=== PATIENT | male | born 1950 | race Caucasian/White ===

== ENCOUNTER 2016-12-12 18:49 | Inpatient (IN) | payer OTHER ==
--- NOTE | 2016-12-12 18:54 | EDPHY ---
H & P Stated Complaint: cp at 5 pm HPI/ROS: CHIEF COMPLAINT: Chest pain. HISTORY OF PRESENT ILLNESS: The patient is a 66-year-old male with a history of hypertension who presents with left-sided chest pain that began 2 hours ago while at [employer], pushing shopping cart. He has associated left arm numbness. He denies shortness of breath, nausea, recent fever or cough, leg swelling/calf pain. His pain is somewhat worse with deep breathing. He was seen in the ED for chest pain in September 2014 and was admitted at that time for evaluation of possible ACS but was found to have pneumonia and sepsis. He had a negative stress test in 2014. He reports that his symptoms today are similar. He took four 324mg Aspirin prior to arrival. He did not have any Viagra or Cialis today. Father with heart disease, diagnosed in his 70s. REVIEW OF SYSTEMS: A ten point review of systems was performed and is negative with the exception of the items mentioned in the HPI. Also, he had an episode of right foot cramping while at [employer], resolved spontaneously. Source: Patient Exam Limitations: No limitations - Personal History Current Tetanus/Diphtheria Vaccine: Yes - Medical/Surgical History Hx Asthma: No Hx Chronic Respiratory Disease: No Hx Diabetes: No Hx Cardiac Disease: No Hx Renal Disease: No Hx Cirrhosis: No Hx Alcoholism: No Hx HIV/AIDS: No Hx Splenectomy or Spleen Trauma: No Other PMH: Mononucleosis, HTN, pneumonia admission 2013. 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 Social alcohol. - Physical Exam Exam: General Appearance: Alert. Vital signs reviewed. Blood pressure 140/101. Eyes: Pupils equal and round, no conjunctival injection, no discharge. Anicteric. ENT, Mouth: Mucous membranes are moist, no oropharyngeal erythema or edema. Neck: No lymphadenopathy, supple. No carotid bruit. No JVD. Respiratory: Lungs are clear to auscultation; no wheezes, rales, or rhonchi. Cardiovascular: Regular rate and rhythm; no murmur, rub, or gallop. Gastrointestinal: Abdomen is soft and nontender, no masses or organomegaly, bowel sounds normal. Skin: Warm and dry, no rashes on exposed skin, normal color. Back: Nontender to palpation over the thoracolumbar spine. No CVAT. Extremities: No lower extremity edema, no calf tenderness or swelling. Neurological: Alert and oriented. Moving all four extremities easily and equally. Psychiatric: Normal affect. Constitutional: Initial Vital Signs Temperature (C) 36.4 C 12/12/16 18:50 Heart Rate 95 12/12/16 18:50 Respiratory Rate 18 12/12/16 18:50 Blood Pressure 140/101 H 12/12/16 18:50 O2 Sat (%) 96 12/12/16 18:50 O2 Delivery Mode Nasal Cannula O2 (L/minute) 2 Allergies/Adverse Reactions: No Known Allergies Allergy (Verified 12/12/16 18:50) Home Medications: Medication Instructions Recorded Herbals/Supplements -Info Only 1 ea PO DAILY 09/07/14 Losartan Potassium [Cozaar 50 mg 50 mg PO DAILY 09/07/14 (*)] Sildenafil Citrate [Viagra 50 MG 50 mg PO DAILY PRN 09/07/14 (*)] amLODIPine BESYLATE [Norvasc 5 mg 5 mg PO DAILY #30 tab 09/09/14 (*)] Medical Decision Making - Diagnostics EKG Interpretation: The 12 lead EKG was interpreted by myself. See hard copy and/or "tracemaster" electronic copy for interpretation. Sinus rhythm, left anterior fascicular block. Compared to EKG from September. The repeat 12 lead EKG was interpreted by myself. See hard copy and/or "tracemaster" electronic copy for interpretation. Sinus rhythm, rate 93. Left anterior fascicular block. No acute changes. Imaging: Study: PA and Lateral Chest X-ray Indication: Chest pain Results: I viewed the images myself on the PACS system. The radiologist interpretation is: No acute abnormality, or substantial change from 09/16/2016. ED Course/Re-evaluation: I reviewed the patient's past medical notes. He was last seen here in 09/2016 for hypertension. He was also seen in the hospital in 09/2014 for what was initially chest pain, but was determined to be pneumonia with sepsis. He had a negative stress test at that time. An IV was established and labs ordered. Chest x-ray and EKG obtained. .4mg SL Nitroglycerin ordered times three doses. WBC elevated at 11.07. No fever or other signs/sx of infection. CXR does not show infiltrate or evidence of pneumonia. 7:30 p.m.. Patient re-evaluated. He has received 2 sublingual nitroglycerin. His chest pain is still located substernally and is rated as a 2-3. He is not having left arm symptoms. Blood pressure is now 110/77. 7:56 p.m.. Reassessed patient. Discussed workup with him. His pain is better but not completely gone. It is slightly worse with deep breath, but this seems to be inconsistent. I doubt pulmonary embolus. I discussed admission with him. He is comfortable with the plan. His HEART score is +2 (suspicious history), +2 (age 66) +2 (HTN and FH) = 6. This score warrants admission and serial enzymes. 8:08: p.m.. Consulted with Dr. Yung, hospitalist. He accepts admission to [facility]. Repeat EKG has been ordered. Differential Diagnosis: Chest pain including but not limited to myocardial ischemia, pulmonary embolus, chest wall pain, pleural inflammation and pulmonary infectious causes. - Data Points Laboratory Results: Laboratory Results 12/12/16 19:09 12/12/16 19:09 Medications Given: Discontinued Medications Nitroglycerin (Nitrostat) 0.4 mg SL Q5M PRN PRN Reason: Chest Pain Stop: 12/12/16 19:18 Last Admin: 12/12/16 19:28 Dose: 0.4 mg Departure - Departure Disposition: [facility] Inpatient Acute Clinical Impression: Chest pain Qualifiers: Chest pain type: unspecified Qualified Code(s): R07.9 - Chest pain, unspecified Condition: Fair Report Scribed for: Apple Gurrola Report Scribed by: Julien Sellers Date of Report: 12/12/16 Time of Report: 18:59 Physician Review and Approval Statement: 12/12/16 18:54 Portions of this note were transcribed by the medical office worker. I, Dr. Apple Gurrola, personally performed the history, physical exam, and medical decision- making; and confirmed the accuracy of the information in the transcribed note.
--- NOTE | 2016-12-12 19:02 | CPEKG ---
Heart Rate: 94 RR Interval: 638 P-R Interval: 188 QRSD Interval: 92 QT Interval: 348 QTC Interval: 436 P [place]ays[place]: 50 QRS [place]ays[place]: -53 T Wave [place]: 43 EKG Severity - ABNORMAL ECG - EKG Impression: SINUS RHYTHM EKG Impression: LEFT ANTERIOR FASCICULAR BLOCK Electronically Signed By: Manoj Harper 18-Dec-2016 16:34:58
[2016-12-12] MEDS: NITROGLYCERIN 0.4 MG BTL SL PRN ×2 (19:10→19:28)
[2016-12-12 19:18] LABS: % IMMATURE GRANULYOCYTES 0.4 % (0.0-1.1); ABSOLUTE IMMATURE GRANULOCYTES 0.04 10^3/uL (0.00-0.10); ADD DIFF? NO; ADD MORPH? NO; ADD SCAN? NO; ATYPICAL LYMPHOCYTE FLAG 0 (0-99); FRAGMENT RBC FLAG 0 (0-99); HEMATOCRIT 49.9 % (40.0-51.0); HEMOGLOBIN 17.9 g/dL (13.7-17.5); LEFT SHIFT FLG 0 (0-99); LIPEMIA HEMOLYSIS FLAG 90 (0-99); MEAN CELL HEMOGLOBIN 31.6 pg (27.9-34.1); MEAN CELL HEMOGLOBIN CONCENTR. 35.9 g/dL (32.4-36.7); MEAN PLATELET VOLUME 9.2 fL (8.7-11.7); PLATELET CLUMPS FLAG 0 (0-99); PLATELET COUNT 183 10^3/uL (150-400); RED BLOOD CELL COUNT 5.67 10^6/uL (4.40-6.38); RED CELL DISTRIBUTION WIDTH 12.6 % (11.5-15.2)
[2016-12-12 19:43] LABS: ANION GAP 11 mEq/L (8-16); CALCIUM 9.5 mg/dL (8.5-10.4); CARBON DIOXIDE 21 mEq/l (22-31); CHLORIDE 106 mEq/L (97-110); CREATININE 1.2 mg/dL (0.7-1.3); GLOMERULAR FILTRATION RATE > 60; GLUCOSE 105 mg/dL (70-100); POTASSIUM 3.9 mEq/L (3.5-5.2); SODIUM 138 mEq/L (134-144)
[2016-12-12 19:50] LABS: TROPONIN I < 0.012 ng/mL (0-0.034)
--- NOTE | 2016-12-12 20:16 | CPEKG ---
Heart Rate: 93 RR Interval: 645 P-R Interval: 192 QRSD Interval: 94 QT Interval: 344 QTC Interval: 428 P [place]: 47 QRS [place]: -38 T Wave [place]: 22 EKG Severity - BORDERLINE ECG - EKG Impression: SINUS RHYTHM EKG Impression: LEFT AXIS DEVIATION EKG Impression: BORDERLINE T WAVE ABNORMALITIES Electronically Signed By: Apple Gurrola 13-Dec-2016 09:27:55
--- NOTE | 2016-12-12 21:52 | GHP ---
[f rep st] HISTORY AND PHYSICAL DATE OF ADMISSION: 12/12/2016 CHIEF COMPLAINT: Chest pain. HISTORY OF PRESENT ILLNESS: This is a 66-year-old male with a history of hypertension. He was at [facility] today. Was out walking in a parking lot about 5:30 and developed sudden onset substernal ches t pressure with radiation to his left arm. There was a little bit of association with shortness of breath. No diaphoresis or nausea. He came to the emergency department. It is better with nitrogly cerin although he still has a little bit of pain. The pain is somewhat pleuritic. He states that s everal weeks ago he [place] the airport and felt some discomfort like his "heart wasn't feeling right." Two years ago, he had similar symptoms although he had a lot more shortness of sd th and also had rigors. He was initially thought to have acute coronary syndrome but was found late r to have pneumonia. He had a stress test at that time which was normal. REVIEW OF SYSTEMS: A 10-point review of systems was obtained and negative. PAST MEDICAL HISTORY: Hypertension. SOCIAL HISTORY: Drinks about 4 drinks per week. No smoking. 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 FAMILY HISTORY: Father had coronary disease in his 70s. PHYSICAL EXAM: VITAL SIGNS: Afebrile. Blood pressure is 130/78, heart rate 94, oxygen saturation 94% 2 L. GENERAL: Patient is well developed, in no apparent distress. HEENT: Nonicteric sclerae. Extraocular movements intact. Moist mucous membranes. NECK: Supple. No thyromegaly. LUNGS: G ood effort. Clear to auscultation bilaterally. CARDIOVASCULAR: Regular rate and rhythm. No murmu rs, rubs, or gallops. ABDOMEN: Positive bowel sounds. Soft, nontender, nondistended. No hepatosp lenomegaly. EXTREMITIES: No clubbing, cyanosis, or edema. SKIN: Without rash. Warm and intact. NEUROLOGIC: Alert and oriented x3. Moving all 4 extremities equally. PSYCH: Normal mood and aff ect. LABS: and troponin are negative. White count slightly elevated at 11, hemoglobin 17. Chest x-ray personally reviewed and interpreted as negative. EKG personally reviewed and interpreted as showing normal sinus rhythm with some T-wave flattening l aterally but otherwise normal. ASSESSMENT: This is a 66-year-old male presenting with chest pain. PLAN: 1. Chest pain. Will rule out with cardiac enzymes and, if these are negative, will get a stress te st in the morning. His symptoms are a little but suspicious for cardiac cause although there is a p leuritic nature to it. Joell check a D-dimer and consider CAT scanning although his pain is a lot b holly now with some nitroglycerin. 2. Hypertension. Will continue his medications. 3. Admission. Patient will be admitted under observation status. Case discussed with ER physician . Old records reviewed and summarized in the HPI. /[id number]/MODL
--- NOTE | 2016-12-13 09:00 | CPEKG ---
Heart Rate: 98 RR Interval: 612 P-R Interval: 184 QRSD Interval: 86 QT Interval: 332 QTC Interval: 424 P Kimberly: 43 QRS [place]: -36 T Wave Kimber[place]: 6 EKG Severity - OTHERWISE NORMAL ECG - EKG Impression: SINUS RHYTHM EKG Impression: LEFT AXIS DEVIATION; CONSIDER INFERIOR INFARCT, AGE INDETERMINATE EKG Impression: COMPARED WITH DEC 12 2016, T ABNL HAVE IMPROVED Electronically Signed By: Ani Rodriguez 13-Dec-2016 16:58:51
[2016-12-13] MEDS ORDERED: NITROGLYCERIN 0.4 MG BTL SL ONE ×2 (09:08→14:30)
[2016-12-13] MEDS: ASPIRIN 325 MG TAB PO SCH (09:12)
[2016-12-13] MEDS: amLODIPine BESYLATE 5 MG TAB PO SCH (09:12)
[2016-12-13] MEDS: LOSARTAN POTASSIUM 50 MG TAB PO SCH (09:13)
[2016-12-13] MEDS: NITROGLYCERIN 0.4 MG BTL SL PRN ×2 (09:30→09:40)
[2016-12-13] MEDS ORDERED: ACETAMINOPHEN 325 MG TAB PO PRN (09:37)
[2016-12-13] MEDS ORDERED: LIDOCAINE 1% 30 ML SDV ONE ×2 (10:57→11:18)
[2016-12-13] MEDS ORDERED: IOPAMIDOL (ISOVUE-370) 150 ML BTL IV ONE (11:07)
--- NOTE | 2016-12-13 11:08 | GCON ---
[f rep st] CONSULTATION CARDIOLOGY CONSULTATION DATE OF CONSULTATION: 12/13/2016 REFERRING PHYSICIAN: Dr. Jones REASON FOR CONSULTATION: Chest pressure. HISTORY OF PRESENT ILLNESS: The patient is a pleasant 66-year-old gentleman with a past medical his tory of hypertension, who presented to [facility] last evening after developing acute onset of substernal chest pressure while pushing his grocery cart out from [facility] in [place] last evening. Regarding yesterday's events, he states he was in his usual state of health, pushing his grocery cart, when he developed acute onset of substernal chest pressure. He describes this discomfort as 4/10, substernal, nonradiating pressure. This was accompanied by some left arm numbness. No associated shortness of breath, nausea, vomiting, or diaphoresis. He drove his car home, and due to the fact that these symptoms did not resolve, he presented to [facility] for further evaluation. He was admitted to the [facility] for cardiac evaluation. His initial 2 troponins were negative. He was hemodynamically stable. ECG demonstrated normal sinus rhythm with left anterior fascicular block wi th no evidence of acute changes. This morning, in anticipation of an exercise nuclear stress test, he did develop 4/10 substernal chest pain prior to stress test. Stress test was subsequently cancel ed, and Cardiology was consulted for evaluation. He did receive 2 sublingual nitroglycerin with the onset of his chest discomfort this morning, which has decreased his discomfort from a 4/10 down to a 2/10. Currently at the time of my exam, he is resting comfortably without distress but does admit to katina ng 2/10 substernal chest pressure. He is currently hemodynamically stable with a blood pressure of 109/72, and heart rate of 93 in a sinus rhythm. Oxygen saturation is 93% on 1 L via nasal cannula a nd respiratory rate of 16. The patient also reports that he did develop an episode of substernal chest pressure 1 week ago whil e running through an airport to catch a plane. He states that these symptoms forced him to stop run mirtha. With rest, his symptoms gradually resolved. He states he had never had similar symptoms and did not notice these symptoms again until yesterday. The patient has no previous history of coronary artery disease. He states he did undergo a stress t est approximately 2 years ago, which was unremarkable. Cardiac risk factors include a history of essential hypertension, and a 9-zzwr-j-day smoking habit f rom the age of [age]. He states he smokes 1 cigarette a year, on Day. MEDICATIONS ON ADMISSION: Include losartan 50 mg once daily, amlodipine 5 mg daily, aspirin 81 mg d aily, and Viagra p.r.n. PAST MEDICAL HISTORY: Notable only for essential hypertension. SOCIAL HISTORY: Former smoker as outlined above from the age of [age] at 3 packs per day. He drink s approximately 4 alcoholic beverages per week. 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 He is . FAMILY HISTORY: His father did have a myocardial infarction in his mid 70s and from an MS at t he age of 86. He has 2 younger twin brothers who have a history of hypertension. EXAMINATION: CONSTITUTIONAL: He is awake, alert, oriented, appropriate, and in no apparent distres s. VITAL SIGNS: Blood pressure of 109/72, heart rate of 93 in sinus rhythm, oxygen saturation 93% on 1 L via nasal cannula, respiratory rate of 16. NECK: There is no evidence of JVP or carotid bru its. LUNGS: Clear to auscultation bilaterally. CARDIA: S1, S2. Regular rate and rhythm. No mur murs, rubs, or gallops. ABDOMEN: Soft, nontender, nondistended. There is no pulsatile mass or abd ominal bruit. EXTREMITIES: He has 2+ right femoral artery pulse. He has 2+ bilateral radial pulse s. He has 2+ dorsalis pedis and posterior tibial pulses. There is no evidence of cyanosis, clubbin g, or lower extremity edema. DATA: Chest x-ray demonstrates no acute cardiopulmonary process. ECG demonstrates sinus rhythm with left anterior fascicular block. Lab Work: Creatinine of 1.2, hemoglobin of 17.9, hematocrit of 49.9, platelets of 183. Troponins a re less than 0.012 x2; third troponin is currently pending. IMPRESSION: The patient is a pleasant 66-year-old gentleman with new onset of symptoms consistent w ith unstable angina in the setting of multiple coronary artery disease risk factors, including hyper tension and significant smoking history. In the setting of ongoing 2/10 discomfort at this time, I have recommended diagnostic left heart catheterization. Risks and benefits were discussed of the pr allen. He is agreeable to pursue. He has no known history to contrast. He has no history of all ergy to aspirin. He has no history of peptic ulcer disease, bleeding ulcers, or GI bleeding. He horowitz s no upcoming surgeries; although, he does state he may need a tooth extraction in the near future. PLAN: 1. Arrange for diagnostic left heart catheterization this morning. 2. Further workup pending results of diagnostic left heart catheterization. 3. Will continue to follow along with this patient's care. Thank you for this consult. /[id number]/MODL
[2016-12-13] MEDS ORDERED: fentaNYL 100 MCG/2 ML INJ ONE ×2 (11:18→13:48)
[2016-12-13] MEDS ORDERED: MIDAZOLAM 2 MG/2 ML VIAL ONE ×2 (11:18→13:14)
[2016-12-13] MEDS ORDERED: NITROGLYCERIN 1,500 MCG/15 ML VIAL MISC ONE (12:32)
[2016-12-13] MEDS ORDERED: BIVALIRUDIN 250 MG/5 ML VIAL IV ONE ×2 (12:32→13:58)
[2016-12-13] MEDS ORDERED: ATROPINE SULFATE 1 MG/10 ML SYR ONE (13:02)
--- NOTE | 2016-12-13 13:05 | ECHO ---
[id number] + + [address] : : [place] [address] : : [phone] + Adult Echocardiographic Report + -----+ :Name: CINDY HENRY JStudy Date: 12/13/2016 10:31 AM : : Hospital Admission Number: [id number] : :: 1950 Gender: Male Height: 68 in : :Age: 66 yrs Race: WH Weight: 189 lb : :Reason For Study: chest pain : : BSA: 2.0 me ters2: :History: No previous : + -----+ MMode/2D Measurements \T\ Calculations IVSd: 1.3 cm LVIDd: 4.1 cm FS: 27.3 % LVOT diam: 2.1 cm LVPWd: 1.2 cm LVIDs: 3.0 cm EDV(Teich): LVOT area: 72.5 ml 3.5 cm2 ESV(Teich): 33.6 ml EF(Teich): 53.7 % LVLd ap4: 7.0 cm SV(MOD-sp4): EDV(MOD-sp4): 40.0 ml 65.0 ml LVLs ap4: 5.6 cm ESV(MOD-sp4): 25.0 ml EF(MOD-sp4): 61.5 % Normal Measurement Values: + + :LVIDd (3.5-5.7cm) IVSd (0.6-1.1cm) LVPWd (0.6-1.1cm) Aortic Root (2.0-3.7cm)Left Atrium (1.5-4.0cm): :LV Vol(d) (76-115ml) LV Vol(s) (29-48ml) Ejec Fraction (50-65%)PV Nj (0.6- 1.2m/s) TV Nj (0.4-1.0m/s) : :MV E Nj (0.8-1.0m/s)MV A Nj (0.3-1.0m/s)LVOT Nj (0.7-1.2m/s) Asc Ao Nj ( 0.9-1.8m/s) : + + Doppler Measurements \T\ Calculations MV E max nj: MV V2 max: Ao V2 max: LV V1 max: 38.1 cm/sec 61.7 cm/sec 102.0 cm/sec 79.4 cm/sec MV A max nj: MV max PG: Ao max P.2 mmHg LV V1 max P.3 cm/sec 1.5 mmHg Ao mean P.0 mmHg2.5 mmHg MV E/A: 0.81 MV V2 mean: Ao V2 mean: LV V1 mean PG: MV dec time: 41.8 cm/sec 64.5 cm/sec 1.0 mmHg 0.15 sec MV mean PG: Ao V2 VTI: 14.7 cm LV V1 mean: 1.0 mmHg MARYJO(I,D): 3.3 cm2 54.2 cm/sec MV V2 VTI: LV V1 VTI: 13.9 cm 12.9 cm MARYJO(V,D): 2.7 cm2 MVA(VTI): 3.7 cm2 SV(LVOT): 48.1 ml PA V2 max: PI end-d nj: TR max nj: 67.4 cm/sec 125.0 cm/sec 161.0 cm/sec PA max PG: TR max P.8 mmHg 10.4 mmHg RAP systole: 10.0 mmHg RVSP(TR): 20.4 mmHg Left Ventricle The left ventricle is normal in size and function. There is moderate concentric left ventricular hypertrophy. Ejection Fraction = 55-60%. There is Doppler evidence for diastolic dysfunction. Regional wall motion abnormalities cannot be excluded due to limited visualization. + ---------+ : : :I WMSI = 1.00 % Normal = 100 : + + + ---------+ :+ +:+ ++ +: : :: ::: :: :: : :: ::: :: :: : :: ::: :: :: : :: ::: :: :: : :: ::: :: :: : :: ::: :: :: : :: ::+ ++ +: : :: ::+ ++ +: : :: ::: :: :: : :: ::: :: :: : :: ::: :: :: : :: ::: :: :: : :: ::: :: :: : :: ::: :: :: : :+ +:+ ++ +: : + + ---------+ : : : : : Segments Size : : :+--------+ --------+: :X - Cannot 0 - 1 - Normal (2) - Mildly 2 - ::1-2 : small :: :Interpret Hyperkinetic Hypokinetic Hypokinetic :+--------+ --------+: : 4 - 5 - 6 - Akinetic 7 - ::3-5 : moderate:: :3 - Akinetic Dyskinetic Aneurysmal w/scar Dyskinetic :+--------+ --------+: : w/scar ::6-14 : large :: : :+--------+ --------+: : ::15-16 : diffuse :: : :+--------+ --------+: + + ---------+ Right Ventricle The right ventricular systolic function is normal. TAPSE normal. Atria The left atrial size is normal. Right atrial size is normal. The interatrial septum is intact with no evidence for an atrial septal defect. Mitral Valve The mitral valve is normal in structure and function. There is no mitral valve stenosis. There is no mitral regurgitation noted. Tricuspid Valve The tricuspid valve is normal in structure and function. There is no tricuspid stenosis. There is trace tricuspid regurgitation. Right ventricular systolic pressure is normal. Aortic Valve The aortic valve is normal in structure and function. There is no aortic stenosis. Mild aortic regurgitation. Pulmonic Valve The pulmonic valve is not well visualized. There is no pulmonic valvular stenosis. Mild pulmonic valvular regurgitation. Great Vessels The aortic root is normal size. Mildly dilated ascending aorta. Pericardium/Pleural There is a fat pad seen. There is no pericardial effusion. There is no pleural effusion. Conclusion A complete two-dimensional transthoracic echocardiogram was performed (2D, M-mode, Doppler and color flow Doppler). The study was technically difficult. The left ventricle is normal in size and function. Ejection Fraction = 55-65%. There is Doppler evidence for diastolic dysfunction. There is trace tricuspid regurgitation. Right ventricular systolic pressure is normal. The aortic valve is normal in structure and function. Mild aortic regurgitation. Mild pulmonic valvular regurgitation. Mildly dilated ascending aorta. There is moderate concentric left ventricular hypertrophy. There is no pleural effusion. Final Reading Physician: Donald Dhillon electronically signed on 12/13/2016 01:04 PM Ordering Physician: Ngoc Jones Performed By: Susan Wing
[2016-12-13] MEDS ORDERED: IOPAMIDOL (ISOVUE-300) 200 ML BTL IV ONE ×3 (13:31→15:07)
[2016-12-13] MEDS ORDERED: IOPAMIDOL (ISOVUE-300) 150 ML BTL IV ONE (13:32)
[2016-12-13] MEDS ORDERED: ETOMIDATE 40 MG/20 ML INJ ONE (13:35)
[2016-12-13] MEDS ORDERED: METOPROLOL TARTRATE 5 MG/5 ML INJ ONE (13:50)
--- NOTE | 2016-12-13 13:59 | GOP ---
[f rep st] OPERATIVE REPORT DATE OF OPERATION: 12/13/2016 SURGEON: Donald Dhillon MD PREOPERATIVE DIAGNOSIS: POSTOPERATIVE DIAGNOSIS: PROCEDURE PERFORMED: Diagnostic left heart catheterization. FINDINGS: 1. Left main. Normal size and caliber. Bifurcates into the left anterior descending an d left circumflex coronary artery. There was no evidence of coronary disease within the left main. 2. Left anterior descending. The left anterior descending is a large-caliber vessel with evidence of a 90% focal stenosis in the proximal portion of the vessel at the level of the first large septal as well as first diagonal branch. There was 80% proximal stenosis in the first diagonal branch and approximately 50% stenosis in the proximal portion of the first septal branch. There was 60% to 70 % distal disease within the LAD as well, close to the level of the apex. 3. Circumflex vessel demonstrates mild luminal irregularities with no flow-limiting coronary artery disease. 4. Right coronary artery is a codominant vessel. There are mild luminal irregularities within the mid portion of the right coronary artery. There was 50% to 60% stenosis of a bifurcation off the PD A branch. INDICATIONS: Indication for heart catheterization are symptoms consistent with unstable angina and multiple coronary artery disease risk factors. DESCRIPTION OF PROCEDURE: After informed consent was obtained, the patient was [facility] where he was prepped and draped in a sterile fashion. Using 1% lidocaine, th e right groin was anesthetized. Using modified Seldinger technique, a 6-Mosotho right common femoral artery sheath was placed without complication. A JL4 catheter was initially used to cannulate the left main unsuccessfully. Attempts with a 3.5 were also unsuccessful. A JL4.5 was able to successf ully cannulate the left main. Images of the left coronary anatomy were obtained in multiple project ions. The JL4.5 catheter was exchanged over a guidewire for a JR4 catheter. The JR4 catheter was used to take images of the right coronary anatomy in multiple projections. Left ventriculogram was deferred in the setting of the recent echocardiogram done this morning, coup led with the need for complex intervention. CONCLUSIONS: 1. Severe, complex, single-vessel coronary artery disease at the proximal left anterior descending at the level of the bifurcation of the first diagonal and first septal upholsterer inside. 2. The images were reviewed with my interventional colleague, Dr. Orr. The decision was made fo r percutaneous coronary intervention to the left anterior descending. /[id number]/MODL
[2016-12-13] MEDS ORDERED: ONDANSETRON 4 MG/2 ML VIAL ONE (14:06)
[2016-12-13] MEDS ORDERED: PRASUGREL HCL 10 MG TAB ONE (15:35)
--- NOTE | 2016-12-13 15:38 | HOSPPROG ---
Hospitalist Progress Note Assessment/Plan: The patient is a 66 year old male admitted for chest pain. Assessment/Plan: Unstable angina, acute Multivessel coronary artery disease with ischemia Mild diastolic cardiac dysfunction Hypertension Leukocytosis, mild Elevated hemoglobin, mild - consulted the authorization specialist on-call, Dr. Dhillon. - patient underwent a diagnostic and interventional catheterization today, found to have multivessel coronary artery disease, received angioplasty/stent - patient will need to take the regular daily cardiac meds including beta shahida, Derrick or Arb, dual anti-platelet therapy, statin. - observation overnight. If stable and okay with Cardiology, patient may be discharged tomorrow with instructions to follow up with his PCP and authorization specialist as an outpatient. Status: Changed from observation to inpatient status for greater than 2 midnight stay total for of above reasons. Disposition: Inpatient, transferred to PCU. Plan for discharge tomorrow if no complications arise. Sixty total minutes of veyb-bd-rsof time with the patient/family members and floor time with other physicians, RNs was spent, >50% of which was spent counseling and coordinating patient care. ____ Subjective: Saw patient this morning, he was having active retrosternal pressure-like CP at rest. Physical Exam: General: The patient is a middle-aged, overweight male who is alert and in no acute distress. HEENT: normocephalic, extraocular movements intact, conjunctivae clear, no lesions on face. Nares and oral mucosa pink and moist. Neck: trachea midline, no visible masses, no external lesions. CV: +S1/S2, RRR, no MRG. Resp: unlabored, CTAB no RRW. Abd: soft and nondistended. Musculoskeletal: Normal gait. Neuro: cranial nerves II XII grossly intact. Intact gross motor and sensory function. Psych: appropriate mood/affect. Skin: no pallor. Labs/Imaging/Other Tests: Personally reviewed/interpreted. Objective: Vital Signs Temp Pulse Resp BP Pulse Ox 36.9 C 98 16 111/73 93 12/13/16 08:00 12/13/16 09:42 12/13/16 09:42 12/13/16 09:37 12/13/16 09:42 ICD10 Worksheet Patient Problems: Problems Problem Status Onset Chest pain Acute Pneumonia Acute
[2016-12-13] MEDS ORDERED: PRASUGREL HCL 10 MG TAB PO ONE (16:04)
[2016-12-13] MEDS ORDERED: LORazepam 2 MG/ML INJ IVP PRN (16:04)
[2016-12-13] MEDS ORDERED: ONDANSETRON 4 MG/2 ML VIAL IVP PRN (16:04)
[2016-12-13] MEDS ORDERED: TEMAZEPAM 15 MG CAP PO PRN (16:04)
[2016-12-13] MEDS ORDERED: NITROGLYCERIN 0.4 MG BTL SL PRN (16:04)
[2016-12-13] MEDS ORDERED: OXYCODONE/APAP 5/325 TAB PO PRN (16:04)
[2016-12-13] MEDS ORDERED: HYDROCODONE/APAP 5/325 TAB PO PRN (16:04)
[2016-12-13] MEDS ORDERED: ATROPINE SULFATE 1 MG/10 ML SYR IVP PRN (16:04)
[2016-12-13] MEDS ORDERED: NS 1,000 ML IV SCH (16:15)
--- NOTE | 2016-12-13 17:08 | CPEKG ---
Heart Rate: 86 RR Interval: 698 P-R Interval: 184 QRSD Interval: 144 QT Interval: 380 QTC Interval: 455 P [place]un[place]: 51 QRS [place]: -32 T Wave [place]: -11 EKG Severity - ABNORMAL ECG - EKG Impression: SINUS RHYTHM EKG Impression: RIGHT BUNDLE BRANCH BLOCK EKG Impression: PROBABLE INFERIOR INFARCT, AGE INDETERMINATE Electronically Signed By: Ani Rodriguez 14-Dec-2016 20:07:06
--- NOTE | 2016-12-13 18:20 | CPIP ---
[f rep st] INVASIVE CARDIAC PROCEDURE DATE OF PROCEDURE: 12/13/2016 PROCEDURE PERFORMED: 1. Coronary catheterization. 2. Selective coronary angiography. 3. Rotational atherectomy of the septal left anterior descending and diagonal branches. 4. Cutting balloon angioplasty of the proximal 2nd diagonal with a 2.0 x 6 cutting balloon. 5. Percutaneous transluminal coronary angioplasty and stent placement of the left anterior descendi ng with the use of a 3.0 x 24 synergy drug-eluting stent. This was post dilated at a maximum size a nd pressure of 16 atmospheres with a 3.5 Emerge NC. 6. Side branch occlusion of the septum and diagonal branches, post stent implantation. The side br anch was opened successfully with a Oyster Cultivator 50 wire. A 1.2 mm Emerge balloon followed by 1.5 push Keiko rge balloon, and then finally 2.5 x 12 and 3.5 x 15 Emerge balloons were used for kissing balloon an gioplasty of the left anterior descending and the 2nd diagonal take-off. We did not attempt to reop en the septal branch post stent implantation. PROCEDURE IN DETAIL: The patient was taken to the cardiac catheterization laboratory urgently by Dr Anabelle Dhillon and was found to have a 90% lesion of the LAD, which was a complex and high-risk lesion just upstream from the highest level of obstruction. There was a diseased 2nd diagonal, which is a large vessel (approximately 2 mm in size) that gives rise to all important anterolateral circulatio n. There was diffuse disease involving this complex atheroma, as well as a 90% obstruction of a 1st and major septal branch. The right coronary artery was also diseased, especially in the distal PDA and PLV; please see his dictation for details of the initial angiography. The distal LAD also had a flow-limiting obstruction. I was asked to see the patient in intraoperative consultation for poss ible high-risk intervention. The 6-Stateless sheath was exchanged for a 7-Stateless sheath, but we had trouble advancing the wire and g uiding catheter. I stopped, took a picture, and realized that there was a dissection of the right e xternal iliac at the level of the end of the sheath. We therefore prepped and draped the left groin , and a single anterior puncture of the common femoral was performed with the micro puncture sheath, and this was exchanged for a 7-Stateless sheath. A 7-Stateless 3 x 75 CLS catheter was used for guide ca theter support. A 0.009 Rota floppy wire was advanced across the LAD, and rotational atherectomy wa s then performed with a 1.5 bur of the LAD proper. The wire was redirected into the septal and diag onal branches and rotation atherectomy was completed on the 1st diagonal and the septal branch. We then performed cutting balloon angioplasty of the 2nd diagonal with a 2.0 x 6 cutting balloon, with a 6 atmosphere inflation, which was relatively prolonged. Diagonal wire was then removed, and a deidra nt was implanted in the LAD, positioned properly just distal to the 1st diagonal takeoff, deployed a t high pressure of 16 atmospheres, and then post dilated with a 3. 5 NC Emerge balloon with 5% to 10 % residual stenosis and BEBO-3 flow in the LAD. Unfortunately, we lost the septal side branch and t he 2nd diagonal. Used a Oyster Cultivator 50 wire to reopen the diagonal and ultimately was able to get a 1.2 m m balloon, and did serial high-pressure inflations with the undersized balloons in the 2nd diagonal, followed by finally kissing balloon angioplasty of the 2nd diagonal and the LAD proper with the pre viously mentioned equipment. The patient had resolution of all chest discomfort and arm pain, and t here was excellent BEBO 3 flow into the 1st and 2nd diagonal as well as in the LAD when the procedur e was completed. We then proceeded with evaluation of the right groin, measured a pressure drop of 40 mm across from the aorta to the sheath on the right side, and there was evidence, with angiograph y from the common iliac injection with the MEEK catheter, that there was a spiral dissection comprom ising approximately 50% of the lumen with a napkin ring stenosis, which may have been an even greate r obstruction. We measured the vessel with QCA to be approximately 11 mm in size. Our largest diam eter biliary or iliac stent was a 10 mm vessel. We used a 10 mm x 37 balloon and parked it at the s ite of the wire dissection in the right external iliac, and then inflated that at a maximum pressure of 16 atmospheres. The balloon was then removed, and the vessel was post dilated with a 9 mm ballo on with excellent apposition and only a 5% residual flow into a dissection flap, with excellent ante grade flow down the common iliac and into the external iliac post stent implantation. The patient tolerated the procedure well and underwent successful Angio-Seal arteriotomy repair. Th e right common femoral sheath will be removed with manual pressure, and manual arteriotomy repair af ter the ACT has drifted to below 150. /[id number]/MODL
[2016-12-14 06:14] LABS: % IMMATURE GRANULYOCYTES 0.5 % (0.0-1.1); ABSOLUTE IMMATURE GRANULOCYTES 0.06 10^3/uL (0.00-0.10); ADD DIFF? NO; ADD MORPH? NO; ADD SCAN? NO; ATYPICAL LYMPHOCYTE FLAG 0 (0-99); FRAGMENT RBC FLAG 0 (0-99); HEMATOCRIT 43.5 % (40.0-51.0); HEMOGLOBIN 15.4 g/dL (13.7-17.5); LEFT SHIFT FLG 0 (0-99); LIPEMIA HEMOLYSIS FLAG 90 (0-99); MEAN CELL HEMOGLOBIN CONCENTR. 35.4 g/dL (32.4-36.7); MEAN CELL VOLUME 87.5 fL (81.5-99.8); MEAN PLATELET VOLUME 9.5 fL (8.7-11.7); PLATELET CLUMPS FLAG 10 (0-99); PLATELET COUNT 173 10^3/uL (150-400); RED BLOOD CELL COUNT 4.97 10^6/uL (4.40-6.38); RED CELL DISTRIBUTION WIDTH 12.7 % (11.5-15.2)
[2016-12-14 06:20] LABS: ALBUMIN 3.7 g/dL (3.5-5.0); ANION GAP 11 mEq/L (8-16); ASPARTATE AMINOTRANSFERASE 155 IU/L (17-59); BILIRUBIN,TOTAL 1.7 mg/dL (0.1-1.4); CALCIUM 8.7 mg/dL (8.5-10.4); CARBON DIOXIDE 21 mEq/l (22-31); CHLORIDE 105 mEq/L (97-110); CREATININE 0.9 mg/dL (0.7-1.3); GLOMERULAR FILTRATION RATE > 60; GLUCOSE 137 mg/dL (70-100); LACTATE DEHYDROGENASE 909 IU/L (313-618); SODIUM 137 mEq/L (134-144)
--- NOTE | 2016-12-14 07:09 | CPEKG ---
Heart Rate: 103 RR Interval: 583 P-R Interval: 196 QRSD Interval: 146 QT Interval: 360 QTC Interval: 471 P Decker: 43 QRS Decker: -33 T Wave Decker: 12 EKG Severity - ABNORMAL ECG - EKG Impression: SINUS TACHYCARDIA EKG Impression: RIGHT BUNDLE BRANCH BLOCK EKG Impression: PROBABLE INFERIOR INFARCT, AGE INDETERMINATE EKG Impression: COMPARED WITH 13 DECEMBER 2016 17:07, HR FASTER Electronically Signed By: Ani Rodriguez 14-Dec-2016 20:06:31
[2016-12-14] MEDS: ATORVASTATIN CALCIUM 40 MG TAB PO SCH (09:05)
[2016-12-14] MEDS: ASPIRIN 325 MG TAB PO SCH (09:05)
[2016-12-14] MEDS: amLODIPine BESYLATE 5 MG TAB PO SCH (09:05)
[2016-12-14] MEDS: PRASUGREL HCL 10 MG TAB PO SCH (09:05)
[2016-12-14] MEDS: LOSARTAN POTASSIUM 50 MG TAB PO SCH (09:06)
--- NOTE | 2016-12-14 10:23 | PDCARPN ---
Cardiology Progress Note Chief Complaint: Mr. Barber is doing well this morning. He underwent [facility] cath yesterday that demonstrated severe proximal LAD disease at the level of septal surgical first assistant and diagonal branch. He underwent successful PCI wtih 3.0 x 24 mm GLADIS to proximal LAD. Diagnonal branch was compromised and flow restored with kissing balloon angioplasty. Septal branch was lost with no attempt to restore flow. He was found to have right external illiac dissection that required angioplasty and stent. Mr. Barber remained hemodynamically stable overnight. Sinus rhythm to sinus tach. Rare isolated ectopy. ECG this AM demonstrated sinus rhythm with new RBBB. Troponin 20 this am. He did have an isolated episode of vomitting this AM. Denies chest pain, sob, viramontes, pnd, orhtopnea, edema, dizziness, lightheadedness. No complaints of palpitations. No tenderness at groin sites. No evidence of hematoma or ecchymosis. Assessment/Plan: Assessment: 1. Severe Proximal LAD disease sp PCI with 3.0 x 24 mm GLADIS requiring balloon angioplasty to D2 and loss of septal branch 2. Right external illiac dissection requiring PCI 3. New RBBB 4. Peak Troponin of 20 in setting of loss of septal branch 5. Sinus tachycardia 6. Hypertension Plan: 1. stop amlodipine 2. start coreg 3.125 mg bid 3. troponin at 2 PM and tomorrow AM 4. BNP in AM 5. Continue Aspirin 325 mg daily 6. Continue Effient 10 mg daily 7. Continue Atorvastatin 40 mg daily 8. Echocardiogram in the morning 9. OK to transfer to [facility] 12/14/16 10:23 Reviewed/Discussed With: hospitalist Time Spent With Patient: 30 minutes Objective: Vital Signs (8 Hrs) Temp Pulse Resp BP Pulse Ox 12/14/16 09:05 138/91 H 12/14/16 09:00 36.8 C 109 H 20 138/91 H 93 12/14/16 08:00 101 H 19 126/95 H 97 12/14/16 06:00 98 11 L 141/93 H 92 12/14/16 05:00 85 15 124/77 H 98 12/14/16 04:00 105 H 18 130/60 H 97 12/14/16 03:00 102 H 15 98 Result Diagrams: 12/14/16 05:20 12/14/16 05:20 Cardiac Labs: Cardiac Lab Results (72 Hrs) 12/14/16 05:20 Troponin I 20.600 H ICD10 Worksheet Patient Problems: Problems Problem Status Onset Chest pain Acute Pneumonia Acute
[2016-12-14] MEDS: CARVEDILOL 3.125 MG TAB PO SCH (18:03)
--- NOTE | 2016-12-14 19:22 | HOSPPROG ---
Hospitalist Progress Note Assessment/Plan: The patient is a 66 year old male admitted for chest pain. Assessment/Plan: Coronary artery disease with ischemia - severe prox LAD stenosis, s/p PCI Small R ext iliac dissection, s/p repair/compression RBBB Sinus tachycardia Mild diastolic cardiac dysfunction Hypertension Troponin elevation Leukocytosis, from reperfusion injury/possible small infarct Elevated hemoglobin, mild Unstable angina, acute - resolved Abnormal Liver enzymes - discussed w/ Ink Grinder Dr. Dhillon. - s/p angiogram w/ angioplasty and stent placement. - patient will need to take the regular daily cardiac meds including beta shahida, ARB, dual anti-platelet therapy, statin. Counseled about the importance of compliance. - liver enzymes may be elevated from liver injury related to ischemia. Recheck in AM, expect to trend down and may have further evaluation as outpt if needed. - TTE planned for tomorrow. Status: Changed from observation to inpatient status for greater than 2 midnight stay total for of above reasons. Disposition: Inpatient, transfer to PCU. Possible DC to home tomorrow or day after, if no complications. ____ Subjective: Saw patient this morning in the ICU, he still does not feel like his normal self, but feels better overall. +tachycardia all night. Fatigued. Physical Exam: General: The patient is a middle-aged, overweight male who is alert and in no acute distress. HEENT: normocephalic, extraocular movements intact, conjunctivae clear, no lesions on face. Nares and oral mucosa pink and moist. Neck: trachea midline, no visible masses, no external lesions. CV: +S1/S2, tachy rate, RR, no MRG. Resp: unlabored, CTAB no RRW. Abd: soft and nondistended. +BS, nontender. Musculoskeletal: Normal muscle tone/bulk. Moves all extremities equally. Neuro: cranial nerves II XII grossly intact. Intact gross motor and sensory function. Psych: appropriate mood/affect. Skin: no pallor. +mild swelling at R groin. Labs/Imaging/Other Tests: Personally reviewed/interpreted. Objective: Vital Signs Temp Pulse Resp BP Pulse Ox 37.3 C 115 H 17 115/75 92 12/14/16 15:25 12/14/16 18:03 12/14/16 15:25 12/14/16 15:25 12/14/16 15:25 Laboratory Results 03/12/17 05:20 12/14/16 05:20 12/13/16 12/14/16 12/15/16 04:59 05:59 05:59 Intake Total 2807 Output Total 1375 Balance 1432 ICD10 Worksheet Patient Problems: Problems Problem Status Onset Chest pain Acute Pneumonia Acute
[2016-12-14] MEDS ORDERED: MAGNESIUM OXIDE 400 MG TAB PO ONE (19:32)
[2016-12-15 05:10] LABS: ALANINE AMINOTRANSFERASE 54 IU/L (21-72); ALBUMIN 3.5 g/dL (3.5-5.0); ALKALINE PHOSPHATASE 45 IU/L (38-126); ANION GAP 8 mEq/L (8-16); ASPARTATE AMINOTRANSFERASE 171 IU/L (17-59); BILIRUBIN,TOTAL 2.2 mg/dL (0.1-1.4); CALCIUM 8.6 mg/dL (8.5-10.4); CARBON DIOXIDE 22 mEq/l (22-31); CHLORIDE 110 mEq/L (97-110); CREATININE 0.9 mg/dL (0.7-1.3); GLOMERULAR FILTRATION RATE > 60; GLUCOSE 113 mg/dL (70-100); POTASSIUM 3.8 mEq/L (3.5-5.2); SODIUM 140 mEq/L (134-144); TOTAL PROTEIN 5.9 g/dL (6.3-8.2)
[2016-12-15 06:27] LABS: BILIRUBIN-CONJUGATED 0.6 mg/dL (0.0-0.5); BILIRUBIN-UNCONJUGATED 1.6 mg/dL (0.0-1.1)
--- NOTE | 2016-12-15 08:28 | PDCARPN ---
Cardiology Progress Note Chief Complaint: Mr. Barber complains of nausea and fatigue. He notes a decline in energy from yesterday. He has developed an atrial bigeminy. No chest pain,sob, viramontes, pnd, orthopnea. BP remains stable. Trop peak at 29.7 last pm. BP stable. Note BNP and liver enzymes are elevated. Echo pending this morning. Assessment/Plan: Assessment: 1. Severe Proximal LAD disease sp PCI with 3.0 x 24 mm GLADIS requiring balloon angioplasty to D2 and loss of septal branch 2. Right external illiac dissection requiring PCI 3. New RBBB 4. Peak Troponin of 29 n setting of loss of septal branch 5. Sinus tachycardia and Atrial bigeminy 6. Hypertension Plan: 1. Echocardiogram this morning 2. Increaes coreg 6.25 mg bid 3. Continue Aspirin 325 mg daily 4. Continue Effient 10 mg daily 5. Continue Atorvastatin 40 mg daily 6. Recommend patient remain in hospital at least another 24 hours 7. Encourage ambulation 12/15/16 08:26 Time Spent With Patient: 25 minutes Objective: Vital Signs (8 Hrs) Temp Pulse Resp BP Pulse Ox 12/15/16 07:39 36.6 C 110 H 24 H 112/69 97 12/15/16 04:00 36.9 C 69 16 114/65 94 Intake/Output (24 Hrs) 12/14/16 12/15/16 12/16/16 05:59 05:59 05:59 Intake Total 3807 Output Total 1375 Balance 2432 Intake: Oral (ml) 1460 IV Infused (ml) 2347 Ns 1,000 ml @ 100 mls/hr 2347 IV CONT CLARISSA Rx#: [id number] Output: Urine (ml) 1375 Urinal 1375 Other: Weight 90 kg Intake Quantity Yes Sufficient Number of Voids Toilet 1 Urinal 1 Result Diagrams: 12/14/16 05:20 12/15/16 03:46 Cardiac Labs: Cardiac Lab Results (72 Hrs) 12/15/16 12/14/16 12/14/16 03:46 14:45 05:20 Troponin I 29.200 H 29.700 H 20.600 H - Physical Exam Constitutional: WDWN, no apparent distress Cardiovascular: no murmurs, no rubs, no gallops (Sinus tach and atrial bigeminy ) Respiratory: clear to auscultate bilat Gastrointestinal: normoactive bowel sounds, no tenderness Skin: no rashes Musculoskeletal: no muscular tenderness Neurologic: AAOx3, CN II-XII grossly intact Psychiatric: cooperative, interactive, following commands ICD10 Worksheet Patient Problems: Problems Problem Status Onset Chest pain Acute Pneumonia Acute
[2016-12-15] MEDS: ASPIRIN 325 MG TAB PO SCH (10:30)
[2016-12-15] MEDS: ATORVASTATIN CALCIUM 40 MG TAB PO SCH (10:31)
[2016-12-15] MEDS: LOSARTAN POTASSIUM 50 MG TAB PO SCH (10:31)
[2016-12-15] MEDS: PRASUGREL HCL 10 MG TAB PO SCH (10:31)
[2016-12-15] MEDS: CARVEDILOL 6.25 MG TAB PO SCH ×2 (10:31→18:42)
[2016-12-15] MEDS: CARVEDILOL 3.125 MG TAB PO SCH (10:50)
--- NOTE | 2016-12-15 15:25 | HOSPPROG ---
Hospitalist Progress Note Assessment/Plan: # ACS - s/p cath with PCI to LAD and D2, loss of septal branch - trop peak 29 - asa/effient/coreg/lipitor/losartan - currently bigeminy/trigeminy pattern on tele - new RBBB # htn - controlled ## new pt to me chart/ecg's reviewed discussed with Dr Dhillon Subjective: very fatigued with minimal exertion Objective: Vital Signs Temp Pulse Resp BP Pulse Ox 36.7 C 129 H 24 H 105/61 98 12/15/16 11:26 12/15/16 11:26 12/15/16 11:26 12/15/16 11:26 12/15/16 11:26 Laboratory Results 12/14/16 05:20 12/15/16 03:46 12/14/16 12/15/16 12/16/16 05:59 05:59 05:59 Intake Total 3807 Output Total 1375 Balance 2432 - Physical Exam Constitutional: no apparent distress, appears nourished Cardiovascular: other (many premature beats; no MRG) Respiratory: no respiratory distress, no rales or rhonchi, clear to auscultation Gastrointestinal: normoactive bowel sounds, soft, non-tender abdomen, no palpable masses ICD10 Worksheet Patient Problems: Problems Problem Status Onset Pneumonia Acute Chest pain Acute
[2016-12-16 04:32] LABS: % IMMATURE GRANULYOCYTES 0.5 % (0.0-1.1); ABSOLUTE IMMATURE GRANULOCYTES 0.07 10^3/uL (0.00-0.10); ADD DIFF? NO; ADD MORPH? NO; ADD SCAN? NO; ATYPICAL LYMPHOCYTE FLAG 0 (0-99); FRAGMENT RBC FLAG 0 (0-99); HEMATOCRIT 38.2 % (40.0-51.0); HEMOGLOBIN 13.3 g/dL (13.7-17.5); LEFT SHIFT FLG 0 (0-99); LIPEMIA HEMOLYSIS FLAG 90 (0-99); MEAN CELL HEMOGLOBIN 31.9 pg (27.9-34.1); MEAN CELL HEMOGLOBIN CONCENTR. 34.8 g/dL (32.4-36.7); MEAN CELL VOLUME 91.6 fL (81.5-99.8); MEAN PLATELET VOLUME 9.7 fL (8.7-11.7); PLATELET CLUMPS FLAG 10 (0-99); PLATELET COUNT 150 10^3/uL (150-400); RED BLOOD CELL COUNT 4.17 10^6/uL (4.40-6.38); RED CELL DISTRIBUTION WIDTH 12.9 % (11.5-15.2)
[2016-12-16 05:04] LABS: ANION GAP 6 mEq/L (8-16); CALCIUM 8.5 mg/dL (8.5-10.4); CARBON DIOXIDE 26 mEq/l (22-31); CHLORIDE 109 mEq/L (97-110); CREATININE 1.1 mg/dL (0.7-1.3); GLOMERULAR FILTRATION RATE > 60; GLUCOSE 94 mg/dL (70-100); MAGNESIUM 1.9 mg/dL (1.6-2.3); SODIUM 141 mEq/L (134-144)
[2016-12-16] MEDS: LOSARTAN POTASSIUM 50 MG TAB PO SCH ×2 (08:33→12:33)
[2016-12-16] MEDS: PRASUGREL HCL 10 MG TAB PO SCH (08:34)
[2016-12-16] MEDS: ASPIRIN 325 MG TAB PO SCH (08:34)
[2016-12-16] MEDS: ATORVASTATIN CALCIUM 40 MG TAB PO SCH (08:34)
[2016-12-16] MEDS: CARVEDILOL 6.25 MG TAB PO SCH ×2 (08:34→12:32)
--- NOTE | 2016-12-16 12:40 | ECHO ---
[id number] + + [address] : : [place] [address] : : [phone] + + Adult Echocardiographic Report + + :Name: CINDY HENRY JStudy Date: 12/15/2016 09:00 AM BP: 112/69 mmHg : : Hospital Admission Number: [id number] Loc ation: 205: :: 1950 Gender: Male Height: 68 in : :Age: 66 yrs Race: WH Weight: 180 lb : :Reason For Study: increased tropnin s/p stent : : BSA: 2.0 me ters2 : :History: s/p stent : + + MMode/2D Measurements \T\ Calculations IVSd: 1.3 cm RVDd: 3.4 cm FS: 33.9 % Ao root diam: LVPWd: 1.2 cm LVIDd: 4.8 cm EDV(Teich): 3.5 cm LVIDs: 3.2 cm 109.9 ml ESV(Teich): 41.1 ml EF(Teich): 62.6 % LVOT diam: 2.0 cm LVLd ap4: 7.5 cm SV(MOD-sp4): LVOT area: EDV(MOD-sp4): 35.0 ml 3.3 cm2 70.0 ml LVLs ap4: 7.6 cm ESV(MOD-sp4): 35.0 ml EF(MOD-sp4): 50.0 % Normal Measurement Values: + + :LVIDd (3.5-5.7cm) IVSd (0.6-1.1cm) LVPWd (0.6-1.1cm) Aortic Root (2.0-3.7cm)Left Atrium (1.5-4.0cm): :LV Vol(d) (76-115ml) LV Vol(s) (29-48ml) Ejec Fraction (50-65%)PV Nj (0.6- 1.2m/s) TV Nj (0.4-1.0m/s) : :MV E Nj (0.8-1.0m/s)MV A Nj (0.3-1.0m/s)LVOT Nj (0.7-1.2m/s) Asc Ao Nj ( 0.9-1.8m/s) : + + Doppler Measurements \T\ Calculations MV E max nj: Ao V2 max: AI max nj: LV V1 max: 60.5 cm/sec 161.9 cm/sec 304.1 cm/sec 153.0 cm/sec MV A max nj: Ao max PG: AI max P.0 mmHgLV V1 max P.3 cm/sec 10.5 mmHg AI dec slope: 9.4 mmHg MV E/A: 0.99 MARYJO(V,D): 3.1 cm2 94.3 cm/sec2 MV dec time: AI P1/2t: 944.7 msec 0.23 sec PA V2 max: 89.2 cm/sec PA max P.2 mmHg Left Ventricle The left ventricle is normal in size. There is mild to moderate concentric left ventricular hypertrophy. Ejection Fraction = 50%. Mid septal hypokinesis. Right Ventricle The right ventricle is normal in size and function. Atria The left atrial size is normal. Right atrial size is normal. Mitral Valve The mitral valve is normal in structure and function. There is no mitral valve stenosis. There is no mitral regurgitation noted. Tricuspid Valve The tricuspid valve is normal in structure and function. There is no tricuspid stenosis. There is trace tricuspid regurgitation. Aortic Valve The aortic valve is trileaflet. There is no aortic stenosis. Mild aortic regurgitation. Pulmonic Valve The pulmonic valve is not well visualized. Great Vessels Mild aortic root dilatation. Mildly dilated ascending aorta. Pericardium/Pleural There is no pericardial effusion. There is a fat pad seen. Conclusion A two-dimensional transthoracic echocardiogram with M-mode and Doppler was performed. Ejection Fraction = 50%. Mid septal hypokinesis. There is trace tricuspid regurgitation. Mild aortic regurgitation. Mild aortic root dilatation. Mildly dilated ascending aorta. There is mild to moderate concentric left ventricular hypertrophy. Final Reading Physician: Reyna Garner signed on 12/16/2016 12:38 PM Ordering Physician: Darian Yung Performed By: Noni Macias
--- NOTE | 2016-12-16 15:21 | HOSPPROG ---
Hospitalist Progress Note Assessment/Plan: # ACS - s/p cath with PCI to LAD and D2, loss of septal branch - trop peak 29 - asa/effient/coreg/lipitor/losartan - currently bigeminy/trigeminy pattern on tele - new RBBB - Decrease Coreg and watch another day for stability # htn - controlled Subjective: Blood pressure drops last night. No new complaints today. Coreg was held this morning. Objective: Vital Signs Temp Pulse Resp BP Pulse Ox 37.1 C 99 20 97/68 L 94 12/16/16 11:44 12/16/16 11:44 12/16/16 11:44 12/16/16 11:44 12/16/16 11:44 Laboratory Results 12/16/16 03:47 12/16/16 03:47 12/15/16 12/16/16 12/17/16 05:59 05:59 05:59 Intake Total 3807 1390 580 Output Total 1375 50 Balance 2432 1340 580 tele personally viewed interpreted normal sinus rhythm discussed with Cardiology - Physical Exam Constitutional: no apparent distress, appears nourished, not in pain Eyes: anicteric sclera, EOMI Ears, Nose, Mouth, Throat: moist mucous membranes, hearing normal, ears appear normal, no oral mucosal ulcers Cardiovascular: regular rate and rhythym, no murmur, rub, or gallop, No edema Respiratory: no respiratory distress, no rales or rhonchi, clear to auscultation Gastrointestinal: normoactive bowel sounds, soft, non-tender abdomen, no palpable masses Skin: warm Neurologic: AAOx3 Psychiatric: interacting appropriately, not anxious, not encephalopathic, thought process linear ICD10 Worksheet Patient Problems: Problems Problem Status Onset Chest pain Acute Pneumonia Acute
--- NOTE | 2016-12-16 16:20 | SOAPPROG ---
SOAP Progress Note Assessment/Plan: Assessment: Cardiology ([place]) 1. CAD s/p DESx1 proximal LAD c/b loss of septal branch and UT which appears to be 2/2 PCI. Troponin peaked at 29 and is downtrending. On DAPT with aspirin and Effient. 2. New ischemic cardiomyopathy without signs of decompensated CHF. LVEF 50% with septal hypokinesis. 3. History of HTN, now with hypotension. Amlodipine was discontinued in favor of losartan and Coreg (now both on hold). 4. Sinus tachycardia, intermittent. 5. New RBBB. 6. History of tobacco use. 7. Family history of CAD. Plan: 1. Resume carvedilol at 3.125 mg po bid due to tachycardia and frequent ectopy. 2. Continue to hold losartan due to hypotension. 3. Continue to monitor inpatient overnight. Anticipated discharge tomorrow. Subjective: Patient continues to feel very fatigued and lightheaded although this appears to getting better. He has not ambulated to any extent today yet. He asked RN to not give his medications this am due to low BPs and feeling poorly. He denies any recurrent chest discomfort, shortness of breath, or diaphoresis. He denies presyncope or syncope. He lives in a large home with many stairs and is not confident yet that he can navigate that environment and feels he needs to stay in the hospital additional time. Objective: Vital Signs Temp Pulse Resp BP Pulse Ox 36.6 C 88 22 H 109/79 98 12/16/16 15:37 12/16/16 15:37 12/16/16 15:37 12/16/16 15:37 12/16/16 15:37 Laboratory Results 12/16/16 03:47 12/16/16 03:47 12/15/16 12/16/16 12/17/16 05:59 05:59 05:59 Intake Total 3807 1390 580 Output Total 1375 50 Balance 2432 1340 580 Physical Exam - Physical Exam General Appearance: WD/WN, alert, no apparent distress Respiratory: chest non-tender, lungs clear, normal breath sounds Cardiac/Chest: normal peripheral pulses, regular rate, rhythm Abdomen: normal bowel sounds, non-tender, soft Extremities: No swelling Neuro/Psych: no motor/sensory deficits, alert, normal mood/affect, oriented x 3 ICD10 Worksheet Patient Problems: Problems Problem Status Onset Chest pain Acute Pneumonia Acute
[2016-12-16] MEDS: CARVEDILOL 3.125 MG TAB PO SCH (17:32)
[2016-12-17 05:21] VITALS: PULSE 77
[2016-12-17 07:36] VITALS: RESP 16; TEMP 98.8; O2SAT 94
[2016-12-17] MEDS: ASPIRIN 325 MG TAB PO SCH (08:47)
[2016-12-17] MEDS: PRASUGREL HCL 10 MG TAB PO SCH (08:48)
[2016-12-17] MEDS: CARVEDILOL 3.125 MG TAB PO SCH (08:48)
[2016-12-17 08:49] VITALS: BP 123/81
[2016-12-17] MEDS: ATORVASTATIN CALCIUM 40 MG TAB PO SCH (08:49)
[2016-12-17] MEDS: LOSARTAN POTASSIUM 50 MG TAB PO SCH (08:49)
[2016-12-17 09:47] LABS: % IMMATURE GRANULYOCYTES 0.5 % (0.0-1.1); ABSOLUTE IMMATURE GRANULOCYTES 0.04 10^3/uL (0.00-0.10); ADD DIFF? NO; ADD MORPH? NO; ADD SCAN? NO; ATYPICAL LYMPHOCYTE FLAG 0 (0-99); FRAGMENT RBC FLAG 0 (0-99); HEMATOCRIT 39.3 % (40.0-51.0); LEFT SHIFT FLG 0 (0-99); LIPEMIA HEMOLYSIS FLAG 90 (0-99); MEAN CELL HEMOGLOBIN 31.7 pg (27.9-34.1); MEAN CELL HEMOGLOBIN CONCENTR. 35.6 g/dL (32.4-36.7); MEAN CELL VOLUME 89.1 fL (81.5-99.8); MEAN PLATELET VOLUME 9.8 fL (8.7-11.7); PLATELET CLUMPS FLAG 0 (0-99); PLATELET COUNT 187 10^3/uL (150-400); RED BLOOD CELL COUNT 4.41 10^6/uL (4.40-6.38); RED CELL DISTRIBUTION WIDTH 12.6 % (11.5-15.2)
[2016-12-17 10:10] LABS: ANION GAP 10 mEq/L (8-16); CALCIUM 8.9 mg/dL (8.5-10.4); CARBON DIOXIDE 23 mEq/l (22-31); CHLORIDE 108 mEq/L (97-110); CREATININE 0.9 mg/dL (0.7-1.3); GLOMERULAR FILTRATION RATE > 60; GLUCOSE 170 mg/dL (70-100); POTASSIUM 3.6 mEq/L (3.5-5.2); SODIUM 141 mEq/L (134-144)
--- NOTE | 2016-12-17 10:42 | PDCARPN ---
Cardiology Progress Note Chief Complaint: 66 year old male admitted on Sat December 13 with Chest pressure and developed Unstable angina and found to have severe complex single vessel disease with successful PCI to Prox LAD with balloon angioplasty to D2. 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 He has developed a right BBB. Tele demonstrates sinus with PAC's and atrial bigeminy. He has had some symptomatic hypotension on higher doses of Coreg. This morning he is feeling well. He has no complaints. He feels ready to go home Assessment/Plan: Assessment: 1. Severe Proximal LAD disease sp PCI with 3.0 x 24 mm LGADIS requiring balloon angioplasty to D2 and loss of septal branch 2. Right external illiac dissection requiring PCI 3. New RBBB 4. Peak Troponin of 29 n setting of loss of septal branch 5. Sinus tachycardia and Atrial bigeminy 6. Hypertension 7. Mild Ischemic Cardiomyopath with basal septal hypokinesis wiht LVEF of 50% Plan: 1. Plan for discharge this morning 2. Continue coreg 3.125 mg bid 3. Continue Aspirin 325 mg daily 4. Continue Effient 10 mg daily 5. Continue Atorvastatin 40 mg daily 6. Decrease Losartan to 25 mg once daily 7. Follow up with me in the office next week (will call him with date and time) 8. Plan to start cardiac rehab after follow up 9. 45 minutes spent reviewing events of hospitalization, CAD education, medication education, post cath instructions 10. No driving until after follow up 12/15/16 08:26 12/17/16 10:42 Reviewed/Discussed With: hospitalist, multidisciplinary team Objective: Vital Signs (8 Hrs) Temp Pulse Resp BP Pulse Ox 12/17/16 08:48 77 123/81 H 12/17/16 07:36 37.1 C 77 16 98/65 L 94 12/17/16 04:00 36.9 C 77 18 96/66 L 93 Intake/Output (24 Hrs) 12/16/16 12/17/16 12/18/16 05:59 05:59 05:59 Intake Total 1390 1930 Output Total 50 Balance 1340 1930 Intake: Oral (ml) 790 1920 IV Intake (ml) 10 IV Infused (ml) 600 Ns 1,000 ml @ 100 mls/hr 600 IV CONT CLARISSA Rx#: [id number] Output: Urine (ml) 50 Urinal 50 Other: Intake Quantity Yes Sufficient Number of Voids Toilet 3 Number of Stools Toilet 1 Result Diagrams: 12/17/16 09:29 12/17/16 09:29 Cardiac Labs: Cardiac Lab Results (72 Hrs) 12/17/16 12/16/16 12/15/16 09:29 03:47 03:46 Troponin I 9.570 H 18.600 H 29.200 H 12/14/16 14:45 Troponin I 29.700 H - Physical Exam Constitutional: WDWN Ears, Nose, Mouth, Throat: moist mucous membranes Cardiovascular: regular rate and rhythm, no murmurs, no rubs, no gallops Respiratory: clear to auscultate bilat Gastrointestinal: normoactive bowel sounds Skin: no rashes Musculoskeletal: no muscular tenderness Neurologic: AAOx3, CN II-XII grossly intact Psychiatric: cooperative, interactive, following commands ICD10 Worksheet Patient Problems: Problems Problem Status Onset Chest pain Acute Pneumonia Acute
--- NOTE | 2016-12-17 11:25 | GDS ---
[f rep st] DISCHARGE SUMMARY DISCHARGE DIAGNOSES: 1. Unstable angina. 2. Complex cardiac intervention with stenting of left anterior descending and opening up of an yue oplasty of second diagonal. 3. Occlusion of septal branch. HISTORY: A 66-year-old male presenting with anginal type symptoms. HOSPITAL COURSE: Patient was admitted and initial troponins were negative. However, he developed c hest pain prior to his scheduled stress and the decision was made to undergo angiogram. He was then found to have a 90% stenosis of LAD. This was stented, but was a complex procedure and required th e second diagonal to be angioplastied. They were unable to keep the septal branch open. His tropon ins did elevate after that into the 20s. He does have some septal hypokinesis on the echocardiogram . He has been doing well since then. He did have some hypotension with the increase in Coreg to 6. 25 mg. He is going to be discharged home on a lower dose. DISPOSITION: Home. DISCHARGE MEDICATIONS: He will be on aspirin 325 mg daily, Coreg 3.125 mg b.i.d., losartan 25 mg da tricia, and Effient 10 mg daily. FOLLOWUP INSTRUCTIONS: He is instructed to follow up with Cardiology in 1-2 weeks. TIME SPENT: Greater than 30 minutes was spent on discharge. /[id number]/MODL
[2016-12-18] MEDS ORDERED: LOSARTAN POTASSIUM 25 MG TAB PO SCH (09:00)
== END 2016-12-17 12:21 | disposition home or self-care (01) | DRG 247 ==
LOC: F1N 20:35 → OBSVTOIN 12-13 14:16 → F2N 12-13 15:27 → F2W 12-14 12:45
PROVIDERS: ADMIT Internal Medicine; ATTEND Internal Medicine
PROC: 047H3ZZ Dilation of Right External Iliac Artery, Percutaneous Approach (ICD-10-PCS; principal; 2016-12-13)
PROC: 027034Z Dilation of Coronary Artery, One Artery with Drug-eluting Intraluminal Device, Percutaneous Approach (ICD-10-PCS; principal; 2016-12-13)
PROC: 02713ZZ Dilation of Coronary Artery, Two Arteries, Percutaneous Approach (ICD-10-PCS; principal; 2016-12-13)
PROC: 02C13ZZ Extirpation of Matter from Coronary Artery, Two Arteries, Percutaneous Approach (ICD-10-PCS; principal; 2016-12-13)
PROC: 4A023N7 Measurement of Cardiac Sampling and Pressure, Left Heart, Percutaneous Approach (ICD-10-PCS; 2016-12-13)
PROC: B2111ZZ Fluoroscopy of Multiple Coronary Arteries using Low Osmolar Contrast (ICD-10-PCS; 2016-12-13)
PROC: B2151ZZ Fluoroscopy of Left Heart using Low Osmolar Contrast (ICD-10-PCS; 2016-12-13)
DX: I25.110 Atherosclerotic heart disease of native coronary artery with unstable angina pectoris (principal); I10 Essential (primary) hypertension; R79.89 Other specified abnormal findings of blood chemistry; I45.10 Unspecified right bundle-branch block; I25.5 Ischemic cardiomyopathy; I95.9 Hypotension, unspecified; Z82.49 Family history of ischemic heart disease and other diseases of the circulatory system; Z87.891 Personal history of nicotine dependence
CPT/HCPCS: C1724; C1725; C1760; C1769; C1874; C1876; C1887; C1894; C9602; G0378; J0461; J0583; J1644; J2250; J2405; J3010; Q9967

== ENCOUNTER 2017-01-26 20:11 | Emergency (ER) | payer OTHER ==
[2017-01-26 20:33] VITALS: BP 122/81; PULSE 66; RESP 16; TEMP 98.4; O2SAT 93
--- NOTE | 2017-01-26 22:25 | EDPHY ---
H & P Smoking Status: Former smoker Time Seen by Provider: 01/26/17 20:56 HPI/ROS: CHIEF COMPLAINT: Left pinky finger injury HISTORY OF PRESENT ILLNESS: 66-year-old male presents emergency department with an injury to his left pinky finger. Patient was hammering wood when his finger slipped and got smashed into a piece of sheet metal. He is right-hand- dominant, tetanus is up-to-date, denies numbness or tingling in this finger. Patient reports he placed a bandage on his fingers and it continued to bleed so he presented to the emergency department. He is taking Effient and aspirin for recent cardiac stent placement. (Bonita Tavarez) Physical Exam: GEN: Awake, alert, oriented, no acute distress RESP: nl resp effort MSK: Left pinky finger with full flexion and extension against resistance, normal sensation, cap refill less than 2 seconds SKIN: Left pinky finger with lateral distal aspect laceration/flap/maceration (Bonita Tavarez) Constitutional: Initial Vital Signs Temperature (C) 36.9 C 01/26/17 20:30 Heart Rate 66 01/26/17 20:30 Respiratory Rate 16 01/26/17 20:30 Blood Pressure 122/81 H 01/26/17 20:30 O2 Sat (%) 93 01/26/17 20:30 O2 Delivery Mode Room Air Allergies/Adverse Reactions: No Known Allergies Allergy (Verified 01/26/17 20:27) Home Medications: Medication Instructions Recorded Herbals/Supplements -Info Only 1 ea PO DAILY 09/07/14 Aspirin [Aspirin 325 mg (*)] 325 mg PO DAILY #0 tab 12/17/16 Carvedilol [Coreg (*)] 3.125 mg PO BIDMEAL #60 tab 12/17/16 Losartan Potassium [Cozaar 25 mg 25 mg PO DAILY #30 tab 12/17/16 (*)] Prasugrel HCl [Effient 10mg (*)] 10 mg PO DAILY #30 tab 12/17/16 Atorvastatin Calcium 01/26/17 MDM/Departure - [facility] Imaging: I viewed and interpreted images myself - [facility] Procedures: Procedure: Laceration repair. Verbal consent was obtained from the patient. The 1 cm flap laceration / avulsion on the left pinky finger was anesthetized using 1% lidocaine without epinephrine digital block. The wound was carefully irrigated by the emergency department guitar repair technician. Next, the wound was prepped and draped in sterile fashion and explored to its base with a gloved finger. There were no deep structures involved. No tendon injury was identified. No vascular injury was identified. No foreign bodies were identified. The wound was repaired with 5.0 Prolene, 3 simple interrupted sutures. The wound repair was simple. Multiple wound margins required revising. The procedure was performed by myself. Tetanus and antibiotic status were addressed. (Bonita Tavarez) ED Course/Re-evaluation: The patient wasevaluatedand managed by themutlevel provider. My co- signature indicates that [facility] reviewed this chart and I agree with the findings and plan of care asdocumented. I am the secondary supervising physician. (Savannah Rivas) - Depart Disposition: Home, Routine, Self-Care Clinical Impression: Laceration of left little finger Condition: Good Instructions: Finger Laceration (ED) Additional Instructions: Keep your dressing clean and dry for 72 hours and have a wound recheck by your primary care doctor. Sutures need to be removed in 10-12 days. Return sooner for any signs of infection, fevers, chills, increased pain, drainage, any other questions or concerns. Referrals: Doris Mcclendon MD [Primary Care Provider] - As per Instructions
== END 2017-01-26 23:11 | disposition home or self-care (01) ==
PROC: 0HQGXZZ Repair Left Hand Skin, External Approach (ICD-10-PCS; principal; 2017-01-26)
DX: S61.217A Laceration without foreign body of left little finger without damage to nail, initial encounter (principal); Z79.82 Long term (current) use of aspirin; Z87.891 Personal history of nicotine dependence; W23.0XXA Caught, crushed, jammed, or pinched between moving objects, initial encounter

== ENCOUNTER 2017-02-21 10:59 | Emergency (ER) | payer OTHER ==
[2017-02-21 11:14] VITALS: O2SAT 97
[2017-02-21] MEDS ORDERED: OXYMETAZOLINE 30 ML NASAL SPRAY ONE (11:24)
[2017-02-21] MEDS ORDERED: OXYMETAZOLINE 30 ML NASAL SPRAY EACHNARE ONE (11:25)
[2017-02-21] MEDS ORDERED: SILVER NITRATE APPLICATOR 1 APPL TP ONE (11:52)
--- NOTE | 2017-02-21 12:07 | EDPHY ---
H & P Stated Complaint: Epistaxis, wants finger looked at. Time Seen by Provider: 02/21/17 11:11 HPI/ROS: CHIEF COMPLAINT: Epistaxis HISTORY OF PRESENT ILLNESS: 66-year-old male presents emergency department with a right-sided epistaxis that started 1 hour prior to arrival after getting out of the shower. Patient reports 2 days ago he had a nosebleed as well when he was in [place]. Patient takes Effient and aspirin status post coronary artery stent placed in December. He denies trauma, no dizziness, lightheaded, shortness of breath or chest pain. Patient also reports left pinky pain. He was seen 3 weeks ago after a laceration to his pinky that was sutured. He had his sutures removed 10 days ago. Yesterday he noticed redness and tenderness to this finger. REVIEW OF SYSTEMS: A comprehensive 10 point review of systems is otherwise negative aside from elements mentioned in the history of present illness. Source: Patient Exam Limitations: No limitations - Personal History Current Tetanus/Diphtheria Vaccine: Yes Current Tetanus Diphtheria and Acellular Pertussis (TDAP): Yes - Medical/Surgical History Hx Asthma: No Hx Chronic Respiratory Disease: No Hx Diabetes: No Hx Cardiac Disease: Yes Hx Renal Disease: No Hx Cirrhosis: No Hx Alcoholism: No Hx HIV/AIDS: No Hx Splenectomy or Spleen Trauma: No Other PMH: Mononucleosis, HTN, pneumonia admission 2013, [place] with stent, high cholesterol, fatty liver dz. - Social History Smoking Status: Former smoker - Physical Exam Exam: Physical Exam Gen: Alert and Oriented, NAD HEENT: Right nare with anterior epistaxis against septum NECK: no meningismus CV: regular rate and regular rhythm PULM: CTAB, no wheezes ABDOMEN: soft, non tender to palpation, BS present BACK: No CVA tenderness NEURO: Neurologically grossly intact EXTREMITIES: Right distal pinky finger with mild swelling, erythema and tenderness, no fluctuance, no break in skin, no ecchymosis or bleeding SKIN: no rash or break in skin on exposed skin PSYCH: answers questions appropriately. Constitutional: Initial Vital Signs Temperature (C) 36.5 C 02/21/17 11:13 Heart Rate 68 02/21/17 11:13 Respiratory Rate 16 02/21/17 11:13 Blood Pressure 142/89 H 02/21/17 11:13 O2 Sat (%) 97 02/21/17 11:13 O2 Delivery Mode Room Air Allergies/Adverse Reactions: No Known Allergies Allergy (Verified 01/26/17 20:27) Home Medications: Medication Instructions Recorded Herbals/Supplements -Info Only 1 ea PO DAILY 09/07/14 Aspirin [Aspirin 325 mg (*)] 325 mg PO DAILY #0 tab 12/17/16 Carvedilol [Coreg (*)] 3.125 mg PO BIDMEAL #60 tab 12/17/16 Losartan Potassium [Cozaar 25 mg 25 mg PO DAILY #30 tab 12/17/16 (*)] Prasugrel HCl [Effient 10mg (*)] 10 mg PO DAILY #30 tab 12/17/16 Atorvastatin Calcium 01/26/17 Cephalexin [Keflex] 500 mg PO QID 5 Days 02/21/17 Medical Decision Making Procedures: Procedure: Epistaxis control. Indication: Nosebleed not controlled by direct pressure. Risks, benefits, alternatives discussed with patient. Consent was obtained. The right nares was cleared with [place] suction and blowing nose. Several clots were removed. Anterior Rhinoscopy was performed with fiber optic headlamp and nasal speculum. The anterior epistaxis was identified. The patient was treated with silver nitrate stick. Excellent hemostasis was obtained. Following the procedure, the patient was re-examined every 15 to 30 minutes until the patient was free from epistaxis for 1-hour post procedure. The patient tolerated the procedure well. The procedure was performed by myself. - Data Points Medications Given: Discontinued Medications Oxymetazoline HCl (Afrin Nasal [place]) 2 sprays EACHNARE EDNOW ONE Stop: 02/21/17 11:26 Last Admin: 02/21/17 11:39 Dose: 2 spray Departure - Departure Disposition: Home, Routine, Self-Care Clinical Impression: Anterior epistaxis Condition: Good Instructions: Nosebleed (ED), Cellulitis (ED) Additional Instructions: Soak your pinky finger in warm water 5 times a day for 10 minutes. Take 500 mg of Keflex 4 times a day for 5 days. Use a humidifier at night, saline nasal spray 3 times a day. If your nose starts bleeding, use 1 spray of Afrin in each nostril and place nasal clamp. Wait 20 minutes, if your nose continues to bleed spray the Afrin and place clamp again, wait 20 minutes. If it continues to bleed present to the emergency department. Follow-up with your primary care doctor this week. Return to the emergency department for any new symptoms or concerns. Referrals: NONE *PRIMARY CARE P,. [Primary Care Provider] - As per Instructions Prescriptions: Cephalexin [Keflex] 500 mg PO QID 5 Days
[2017-02-21 12:29] VITALS: BP 132/86; PULSE 84; RESP 18; TEMP 97.9
== END 2017-02-21 12:52 | disposition home or self-care (01) ==
LOC: EDUNIT#
PROC: 2Y41X5Z Packing of Nasal Region using Packing Material (ICD-10-PCS; principal; 2017-02-21)
DX: R04.0 Epistaxis (principal); I10 Essential (primary) hypertension; I25.2 Old myocardial infarction; Z79.82 Long term (current) use of aspirin; Z95.5 Presence of coronary angioplasty implant and graft; Z87.891 Personal history of nicotine dependence

== ENCOUNTER 2017-02-22 16:32 | Emergency (ER) | payer OTHER ==
[2017-02-22 17:24] LABS: % IMMATURE GRANULYOCYTES 0.2 % (0.0-1.1); ABSOLUTE IMMATURE GRANULOCYTES 0.01 10^3/uL (0.00-0.10); ADD DIFF? NO; ADD MORPH? NO; ADD SCAN? NO; ATYPICAL LYMPHOCYTE FLAG 20 (0-99); FRAGMENT RBC FLAG 0 (0-99); HEMATOCRIT 43.9 % (40.0-51.0); HEMOGLOBIN 15.5 g/dL (13.7-17.5); LEFT SHIFT FLG 0 (0-99); LIPEMIA HEMOLYSIS FLAG 90 (0-99); MEAN CELL HEMOGLOBIN 31.8 pg (27.9-34.1); MEAN CELL HEMOGLOBIN CONCENTR. 35.3 g/dL (32.4-36.7); MEAN CELL VOLUME 90.1 fL (81.5-99.8); MEAN PLATELET VOLUME 9.6 fL (8.7-11.7); PLATELET CLUMPS FLAG 0 (0-99); PLATELET COUNT 176 10^3/uL (150-400); RED BLOOD CELL COUNT 4.87 10^6/uL (4.40-6.38); RED CELL DISTRIBUTION WIDTH 12.8 % (11.5-15.2)
--- NOTE | 2017-02-22 17:27 | EDPHY ---
H & P Time Seen by Provider: 02/22/17 17:04 HPI/ROS: CHIEF COMPLAINT: Black stools HISTORY OF PRESENT ILLNESS: This 66-year-old man was here yesterday for nose bleed. He is on Effient after cardiac stenting. He was in [place] and this past week on developed a nose bleed and had to go to the emergency department to get it stopped. That evening he started developing some black stools. He was here yesterday for recurrent nose bleed and had that cauterized. He is still had intermittent black stools until today. No abdominal pain, no vomiting, no nonsteroidal use. No red or bloody or maroon stool. REVIEW OF SYSTEMS: Eye: no change in vision ENT: no sore throat Cardiac: no chest pain or syncope, not lightheaded or dizzy. Pulmonary: no cough or SOB Abdomen: HPI Musculoskeletal: no back pain Skin: Cat scratched his left arm any bled but that is stop spontaneously. Neuro: no headache Constitutional: no fever : no urinary symptoms A comprehensive 10 point review of systems is otherwise negative aside from elements mentioned in the history of present illness. PAST MEDICAL HISTORY: Includes coronary disease with stenting, hypertension, high cholesterol. Social history: Here with his and daughter General Appearance: Alert and conversant, cooperative. Eyes: No scleral icterus. ENT, Mouth: Normal mucous membranes. No active bleeding from either nares. Respiratory: Normal respiratory effort, breath sounds equal, lungs are clear to auscultation. Cardiovascular: Regular rate and rhythm. Gastrointestinal: Abdomen is soft and non tender. No external hemorrhoids noted. Brown stool on rectal exam sent for Hemoccult. Neurological: Alert and oriented x3. Normally conversant. Face symmetric, normal movement and sensation in all extremities. Skin: Cat scratch in the left upper arm without active bleeding and no evidence of cellulitis. No surrounding redness or lymphangitis. Musculoskeletal: No peripheral edema and no joint swelling. Psychiatric: Not agitated. Emergency Department course/MDM: Patient presents with black stools which coincide with acute nose bleed likely from platelet inhibition from his medications. I think this being melena from swallowed blood from his epistaxis is far more likely than acute upper GI bleed. Smoking Status: Former smoker Constitutional: Initial Vital Signs Temperature (C) 37 C 02/22/17 16:36 Heart Rate 73 02/22/17 16:36 Respiratory Rate 16 02/22/17 16:36 Blood Pressure 120/85 H 02/22/17 16:36 O2 Sat (%) 96 02/22/17 16:36 O2 Delivery Mode Room Air Allergies/Adverse Reactions: No Known Allergies Allergy (Verified 02/22/17 16:40) Home Medications: Medication Instructions Recorded Carvedilol [Coreg (*)] 3.125 mg PO BIDMEAL #60 tab 12/17/16 Losartan Potassium [Cozaar 25 mg 25 mg PO DAILY #30 tab 12/17/16 (*)] Prasugrel HCl [Effient 10mg (*)] 10 mg PO DAILY #30 tab 12/17/16 Atorvastatin Calcium 01/26/17 Cephalexin [Keflex] 500 mg PO QID 5 Days 02/21/17 ASPIRIN 02/22/17 Medical Decision Making - Data Points Laboratory Results: Laboratory Results 02/22/17 17:10 02/22/17 17:10 02/22/17 02/22/17 02/22/17 Unknown 17:10 17:10 WBC 6.37 10^3/uL 10^3/uL (3.80-9.50) RBC 4.87 10^6/uL 10^6/uL (4.40-6.38) Hgb 15.5 g/dL g/dL (13.7-17.5) Hct 43.9 % % (40.0-51.0) MCV 90.1 fL fL (81.5-99.8) MCH 31.8 pg pg (27.9-34.1) MCHC 35.3 g/dL g/dL (32.4-36.7) RDW 12.8 % % (11.5-15.2) Plt Count 176 10^3/uL 10^3/uL (150-400) MPV 9.6 fL fL (8.7-11.7) Neut % (Auto) 53.9 % % (39.3-74.2) Lymph % (Auto) 31.4 % % (15.0-45.0) [place] % (Auto) 9.4 % % (4.5-13.0) Eos % (Auto) 3.8 % % (0.6-7.6) Baso % (Auto) 1.3 % % (0.3-1.7) Nucleat RBC Rel Count 0.0 % % (0.0-0.2) Absolute Neuts (auto) 3.44 10^3/uL 10^3/uL (1.70-6.50) Absolute Lymphs (auto) 2.00 10^3/uL 10^3/uL (1.00-3.00) Absolute Monos (auto) 0.60 10^3/uL 10^3/uL (0.30-0.80) Absolute Eos (auto) 0.24 10^3/uL 10^3/uL (0.03-0.40) Absolute Basos (auto) 0.08 10^3/uL 10^3/uL (0.02-0.10) Absolute Nucleated RBC 0.00 10^3/uL 10^3/uL (0-0.01) Immature Gran % 0.2 % % (0.0-1.1) Immature Gran # 0.01 10^3/uL 10^3/uL (0.00-0.10) Sodium 140 mEq/L mEq/L (134-144) Potassium 4.3 mEq/L mEq/L (3.5-5.2) Chloride 107 mEq/L mEq/L (97-110) Carbon Dioxide 25 mEq/l mEq/l (22-31) Anion Gap 8 mEq/L mEq/L (8-16) BUN 17 mg/dL mg/dL (7-23) Creatinine 1.1 mg/dL mg/dL (0.7-1.3) Estimated GFR > 60 Glucose 94 mg/dL mg/dL (70-100) Calcium 9.2 mg/dL mg/dL (8.5-10.4) Stool Occult Bld Scrn POSITIVE H (NEGATIVE) Departure - Departure Disposition: Home, Routine, Self-Care Clinical Impression: black stools from nosebleed Condition: Good Instructions: Prasugrel (By mouth), Nosebleed (ED) Referrals: Osbaldo Hood MD [Primary Care Provider] - As per Instructions
[2017-02-22 17:38] LABS: ANION GAP 8 mEq/L (8-16); CALCIUM 9.2 mg/dL (8.5-10.4); CARBON DIOXIDE 25 mEq/l (22-31); CHLORIDE 107 mEq/L (97-110); CREATININE 1.1 mg/dL (0.7-1.3); GLOMERULAR FILTRATION RATE > 60; GLUCOSE 94 mg/dL (70-100); POTASSIUM 4.3 mEq/L (3.5-5.2); SODIUM 140 mEq/L (134-144)
[2017-02-22 18:02] VITALS: BP 125/67; PULSE 82; RESP 18; TEMP 98.2; O2SAT 95
== END 2017-02-22 18:13 | disposition home or self-care (01) ==
DX: K92.1 Melena (principal); R04.0 Epistaxis; I10 Essential (primary) hypertension; I25.10 Atherosclerotic heart disease of native coronary artery without angina pectoris; Z79.82 Long term (current) use of aspirin; Z87.891 Personal history of nicotine dependence; Z95.5 Presence of coronary angioplasty implant and graft

== ENCOUNTER 2017-07-22 06:57 | Observation (INO) | payer OTHER ==
[2017-07-22] MEDS ORDERED: ASPIRIN 81 MG CHEWABLE TAB PO ONE (07:08)
[2017-07-22] MEDS ORDERED: NITROGLYCERIN 0.4 MG BTL SL ONE (07:16)
[2017-07-22] MEDS ORDERED: NITROGLYCERIN 0.4 MG BTL SL PRN (07:16)
[2017-07-22 07:32] LABS: % IMMATURE GRANULYOCYTES 0.4 % (0.0-1.1); ABSOLUTE IMMATURE GRANULOCYTES 0.03 10^3/uL (0.00-0.10); ADD DIFF? NO; ADD MORPH? NO; ADD SCAN? NO; ATYPICAL LYMPHOCYTE FLAG 0 (0-99); FRAGMENT RBC FLAG 0 (0-99); HEMATOCRIT 48.5 % (40.0-51.0); HEMOGLOBIN 17.7 g/dL (13.7-17.5); LEFT SHIFT FLG 0 (0-99); LIPEMIA HEMOLYSIS FLAG 90 (0-99); MEAN CELL HEMOGLOBIN 32.5 pg (27.9-34.1); MEAN CELL HEMOGLOBIN CONCENTR. 36.5 g/dL (32.4-36.7); MEAN PLATELET VOLUME 9.1 fL (8.7-11.7); PLATELET CLUMPS FLAG 0 (0-99); PLATELET COUNT 159 10^3/uL (150-400); RED BLOOD CELL COUNT 5.45 10^6/uL (4.40-6.38); RED CELL DISTRIBUTION WIDTH 12.5 % (11.5-15.2)
--- NOTE | 2017-07-22 07:38 | EDPHY ---
H & P Time Seen by Provider: 07/22/17 07:07 HPI/ROS: HPI Chest pain. 66-year-old male with history of coronary artery disease and stent placement presents by private vehicle with his and daughter with complaint of chest pain which she woke up with at 6:00 a.m.. He describes the pain as a dull ache and pressure with radiation into his left arm. He rated it as a 3/10. He states that he does feel better now rating it as a 2/10. He has a history of hypertension. He had a stent placed in December of this year. His rehanger is Dr. Johnson Dhillon. He reports that he had an DC after the stent was placed. He took an 81 mg chewed aspirin this morning. ROS: Constitutional: No fever, no chills. No weakness. Eyes: No discharge. No changes in vision. ENT: No sore throat. No nasal congestion or rhinorrhea. Respiratory: No cough. No shortness of breath. Cardiac: As above, no palpitations. Gastrointestinal: No abdominal pain, no vomiting, no diarrhea. Genitourinary: No hematuria. No dysuria or increased frequency with urination. Musculoskeletal: No back pain. No neck pain. No myalgias or arthralgias. Skin: No rashes. Neurological: No headache. No focal weakness or altered sensation. Past medical history: Hypertension, pneumonia, fatty liver disease, hyperlipidemia. As above. Social history: Nonsmoker. No alcohol. Exercises on a regular basis. Here with his and daughter. Physical Exam: General Appearance: Alert, mildly diaphoretic. He appears relaxed. This patient is responding to questions appropriately and in full sentences. This patient appears well-hydrated and well-nourished. Eyes: Pupils equal and round no pallor or injection. No lid edema, erythema or injection. Respiratory: There are no retractions, lungs are clear to auscultation with good air movement bilaterally. Cardiovascular: Regular rate and rhythm. No murmur. Gastrointestinal: Abdomen is soft and nontender, no masses, bowel sounds normal. No focal tenderness at McBurney's point. No Cooper sign. Neurological: Motor sensory function is grossly intact. Cranial nerves are normal. Gait is normal. Skin: Warm and dry, no rashes. Musculoskeletal: Neck is supple and nontender. Extremities are symmetrical. No lower extremity edema. All joints range without pain or impingement. Psychiatric: No agitation. No depression. Database: EKG: EKG time is 7:12 a.m.; EKG shows a narrow complex normal sinus rhythm with a ventricular rate of 70. Left axis deviation noted. The AK, QRS, QT intervals are within normal limits. T-wave flattening in the inferior leads. There are no ST-T wave changes indicative of ischemic or injury pattern. No evidence of right heart strain. Interpreted by me. Imaging: Chest x-ray AP portable; the cardiac mediastinal silhouette is unremarkable. No evidence of infiltrate or pneumothorax. No acute cardiopulmonary disease process noted. Interpreted by me. Procedures: Emergency department course: IV placed. He was placed on a cardiac catheterization technician. Vital signs reviewed. He is moderately hypertensive. Otherwise vital signs are normal. He took aspirin at home. He was given 1 sublingual nitroglycerin tablet. EKG performed and reviewed by myself immediately. 7:35 a.m., patient re-evaluated. Reports his chest pain is better. Blood pressure dipped to 98/59 after sublingual nitroglycerin. He states that he feels mildly lightheaded. Chest pain rated at a 1/10. He was given a 250 cc normal saline bolus. 7:40 a.m., blood pressure 117/82. service cleaner shows a narrow complex sinus rhythm with ventricular rate of 72. 8:05 a.m., patient re-evaluated. Results of emergency department workup discussed with him and family. He is still having a small amount of chest discomfort. Rates it as a 1/10. Denies shortness of breath but states the pain is little worse with taking a deep breath. He was given 15 mcg of IV fentanyl as a test dose. Plan for admission discussed. He endorses. 8:10 a.m., spoke with hospitalist, Dr. Erick Bernal. Patient accepted for admission. They will contact his rehanger Dr. Johnson Dhillon for consultation. Patient's remaining emergency department course under my care uneventful. 8:35 a.m., patient re-evaluated. He is sleeping comfortably at this time. Patient admitted in stable and improved condition. Differential Diagnosis: The differential diagnosis on this patient includes but is not limited to acute coronary syndrome, myocardial infarction. Myocarditis, pericarditis, pulmonary embolism, pneumonia, pneumothorax, aortic dissection unlikely. This represents a partial list of diagnoses considered. These considerations are based on history, physical exam, past history, reassessment and diagnostic testing. Smoking Status: Former smoker Constitutional: Initial Vital Signs Temperature (C) 36.5 C 07/22/17 06:59 Heart Rate 73 07/22/17 06:59 Respiratory Rate 20 07/22/17 06:59 Blood Pressure 159/110 H 07/22/17 06:59 O2 Sat (%) 98 07/22/17 06:59 O2 Delivery Mode Room Air Allergies/Adverse Reactions: No Known Allergies Allergy (Verified 07/22/17 06:59) Home Medications: Medication Instructions Recorded Carvedilol [Coreg (*)] 3.125 mg PO BIDMEAL #60 tab 12/17/16 Losartan Potassium [Cozaar 25 mg 25 mg PO DAILY #30 tab 12/17/16 (*)] Prasugrel HCl [Effient 10mg (*)] 10 mg PO DAILY #30 tab 12/17/16 Atorvastatin Calcium 01/26/17 ASPIRIN 02/22/17 Medical Decision Making - Diagnostics Imaging Results: Imaging Impressions Chest X-Ray 07/22/17 07:08 Impression: Negative. - Data Points Laboratory Results: Laboratory Results 07/22/17 07:20 07/22/17 07:20 07/22/17 07/22/17 07/22/17 07:20 07:20 07:20 WBC 7.63 10^3/uL 10^3/uL (3.80-9.50) RBC 5.45 10^6/uL 10^6/uL (4.40-6.38) Hgb 17.7 g/dL H g/dL (13.7-17.5) Hct 48.5 % % (40.0-51.0) MCV 89.0 fL fL (81.5-99.8) MCH 32.5 pg pg (27.9-34.1) MCHC 36.5 g/dL g/dL (32.4-36.7) RDW 12.5 % % (11.5-15.2) Plt Count 159 10^3/uL 10^3/uL (150-400) MPV 9.1 fL fL (8.7-11.7) Neut % (Auto) 70.8 % % (39.3-74.2) Lymph % (Auto) 17.0 % % (15.0-45.0) [place] % (Auto) 8.0 % % (4.5-13.0) Eos % (Auto) 3.0 % % (0.6-7.6) Baso % (Auto) 0.8 % % (0.3-1.7) Nucleat RBC Rel Count 0.0 % % (0.0-0.2) Absolute Neuts (auto) 5.40 10^3/uL 10^3/uL (1.70-6.50) Absolute Lymphs (auto) 1.30 10^3/uL 10^3/uL (1.00-3.00) Absolute Monos (auto) 0.61 10^3/uL 10^3/uL (0.30-0.80) Absolute Eos (auto) 0.23 10^3/uL 10^3/uL (0.03-0.40) Absolute Basos (auto) 0.06 10^3/uL 10^3/uL (0.02-0.10) Absolute Nucleated RBC 0.00 10^3/uL 10^3/uL (0-0.01) Immature Gran % 0.4 % % (0.0-1.1) Immature Gran # 0.03 10^3/uL 10^3/uL (0.00-0.10) PT 13.6 SEC SEC (12.0-15.0) INR 1.05 (0.83-1.16) APTT 27.6 SEC SEC (23.0-38.0) Sodium 143 mEq/L mEq/L (134-144) Potassium 3.8 mEq/L mEq/L (3.5-5.2) Chloride 107 mEq/L mEq/L (97-110) Carbon Dioxide 23 mEq/l mEq/l (22-31) Anion Gap 13 mEq/L mEq/L (8-16) BUN 18 mg/dL mg/dL (7-23) Creatinine 1.1 mg/dL mg/dL (0.7-1.3) Estimated GFR > 60 Glucose 90 mg/dL mg/dL (70-100) Calcium 9.1 mg/dL mg/dL (8.5-10.4) Creatine Kinase 92 IU/L IU/L (0-224) CK-MB (CK-2) Fraction 1.17 ng/mL ng/mL (0.00-3.19) Troponin I < 0.012 ng/mL ng/mL (0.000-0.034) Medications Given: Nitroglycerin (Nitrostat) 0.4 mg SL Q5M PRN PRN Reason: Chest Pain Last Admin: 07/22/17 07:22 Dose: 0.4 mg Discontinued Medications Aspirin (Aspirin) 324 mg PO EDNOW ONE Stop: 07/22/17 07:09 Last Admin: 07/22/17 07:16 Dose: Not Given Departure - Departure Disposition: [facility] Inpatient Acute Clinical Impression: Chest pain
[2017-07-22 07:43] LABS: ANION GAP 13 mEq/L (8-16); CALCIUM 9.1 mg/dL (8.5-10.4); CARBON DIOXIDE 23 mEq/l (22-31); CHLORIDE 107 mEq/L (97-110); CREATININE 1.1 mg/dL (0.7-1.3); GLOMERULAR FILTRATION RATE > 60; GLUCOSE 90 mg/dL (70-100); INR 1.05 (0.83-1.16); POTASSIUM 3.8 mEq/L (3.5-5.2); PROTIME(PATIENT) 13.6 SEC (12.0-15.0); SODIUM 143 mEq/L (134-144)
[2017-07-22 07:44] LABS: APTT 27.6 SEC (23.0-38.0)
[2017-07-22 07:54] LABS: CREATINE KINASE-MB FRACTION 1.17 ng/mL (0.00-3.19); TROPONIN I < 0.012 ng/mL (0.000-0.034)
[2017-07-22] MEDS ORDERED: fentaNYL 100 MCG/2 ML INJ IVP ONE (08:03)
[2017-07-22] MEDS ORDERED: fentaNYL 100 MCG/2 ML INJ ONE (08:04)
[2017-07-22] MEDS ORDERED: oxyCODONE IR 5 MG TAB PO PRN (09:10)
[2017-07-22] MEDS ORDERED: TEMAZEPAM 15 MG CAP PO PRN (09:10)
[2017-07-22] MEDS ORDERED: ONDANSETRON 4 MG/2 ML VIAL IVP PRN (09:10)
[2017-07-22] MEDS ORDERED: ACETAMINOPHEN 325 MG TAB PO PRN (09:10)
[2017-07-22 09:27] LABS: COLOR YELLOW; LEUKOCYTE ESTERASE,URINE NEGATIVE (NEGATIVE); NITRITE,URINE NEGATIVE (NEGATIVE)
--- NOTE | 2017-07-22 09:41 | CPEKG ---
Heart Rate: 70 RR Interval: 857 P-R Interval: 192 QRSD Interval: 98 QT Interval: 384 QTC Interval: 415 P [place]: 52 QRS [place]: -35 T Wave [place]: -12 EKG Severity - BORDERLINE ECG - EKG Impression: SINUS RHYTHM EKG Impression: LEFT AXIS DEVIATION EKG Impression: BORDERLINE T ABNORMALITIES, INFERIOR LEADS Electronically Signed By: Eb Flores 22-Jul-2017 09:59:03
--- NOTE | 2017-07-22 10:08 | GHP ---
[f rep st] HISTORY AND PHYSICAL DATE OF ADMISSION: 07/22/2017 CHIEF COMPLAINT: Chest pain and tremors. HISTORY OF PRESENT ILLNESS: This is a 66-year-old man with a history of coronary artery disease, sta tus post stent who presents with chest pain. This woke him from sleep at 6 a.m. Described as somewh at sharp versus pressure left-sided chest pain, pleuritic in nature with pain and numbness radiating down his left arm. Notably, he has had an CO previously and this is dissimilar from that. He has be en compliant with his medications. He is currently on aspirin and Effient. He has been active at [employer] walking daily uphill. He also notes that about half an hour after the chest pain he noted ful l body tremors. He does not think he had a fever. He had a similar presentation when he had a pneum onia. PAST MEDICAL/SURGICAL HISTORY: 1. Coronary artery disease, status post stent in December of 2016. At which time, septal branch was lo st with subsequent non-Q-wave CO and troponin peak of 29. He is followed by Dr. Dhillon. 2. History of pneumonia. 3. History of epistaxis on dual anti-platelet therapy. 4. Hypertension. MEDICATIONS: Please see medication reconciliation. ALLERGIES: No known drug allergies. FAMILY HISTORY: His father had coronary artery disease. 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 He does not smoke. REVIEW OF SYSTEMS: A 10-point review of systems is conducted and is negative except per HPI. PHYSICAL EXAMINATION: VITAL SIGNS: Blood pressure 136/89, heart 89, respiration rate 18, saturating 94% on room air, temperature 36.4. GENERAL: Mr. Barber is a pleasant man who appears comfortab le, in no acute distress. HEENT: Normocephalic, atraumatic. CARDIOVASCULAR: Regular rate and rhyt hm. There are no murmurs, rubs, or gallops. PULMONARY: Lungs clear to auscultation bilaterally. A BDOMEN: Soft, nontender, nondistended. SKIN: No rash. : No [place]. NEUROLOGIC: He is alert an d oriented x3. He is moving all extremities. PSYCHIATRIC: Normal mood and affect. LABORATORY DATA: CBC shows a red count of 17.7. INR is 1.0. Basic metabolic panel is normal. Trop onin is negative. DATA: 1. I discussed this with Dr. Flores. Will admit to PCU. 2. I reviewed his chart. 3. I personally viewed and interpreted his chest x-ray. This shows normal heart size. There is not radha acute. 4. I personally viewed and interpreted his EKG. This shows sinus rhythm, normal axis, some mild T-w ave flattening, nothing acutely ischemic. IMPRESSION/PLAN: A 66-year-old man with a history of coronary artery disease, presents with chest pa in and tremors. 1. Chest pain: Differential includes ACS, PE, aortic pathology, pericarditis. Pleuritic in nature, check a D-dimer. Trend troponins. Cardiology consult. Monitor on telemetry. Further workup depen yury on his clinical course. 2. Tremors: Similar to when he had pneumonia previously. No pneumonia on x-ray. Check urinalysis. If he has a fever, check blood cultures. Will monitor him. 3. Hypertension: Will continue his outpatient medications. 4. History of coronary artery disease: Will continue his dual anti-platelet therapy, statin and bet a shahida. /[id number]/MODL
[2017-07-22] MEDS: ASPIRIN 81 MG CHEWABLE TAB PO SCH (12:33)
--- NOTE | 2017-07-22 12:42 | ECHO ---
[email or web address] [address] [address] Main: [phone] Fax: [email or web address] Echocardiogram Name: CINDY HENRY MR#: [id number] Study Date: 07/22/2017 Study Time: 11:34 AM Date of : 1950 Age: 66 year(s) Height: 172.7 cm (68 in.) Weight: 80.74 kg (178 lb.) BSA: 1.95 m2 Gender: Male Examination: Echo Indication: chest pain; h/o CAD, stent Image Quality: Adequate Contrast: Requested by: Toan Mccormack BP: / Heart Rate: Rhythm: Indication: chest pain; h/o CAD, stent Procedure Staff Runner Man: Noni Macias Reading Physician: Ani Rodriguez Requesting Provider: Conclusions: Normal size left ventricle. No LV hypertrophy. Low normal left ventricular systolic function. EF is 51 %. There is a small, discrete area of the mid toni/inferoseptal wall which is thin and akinetic consistent with old SD. Mild aortic valve regurgitation is present. Trivial to mild tricuspid valve regurgitation. The pulmonary artery pressure is normal. Dilated ascending aorta measuring 4.3 cm. Compared to echo of 12/15/2016, today's echo is unchanged. Measurements: Chambers Valvular Assessment AV/MV Valvular Assessment TV/PV Normal Normal Normal Name Value Range Name Value Range Name Value Range Ao Suri (MM): 3.1 cm (2.2 cm-3.7 AV Vmax: 1.26 m/s (1 m/s-1.7 TR Vmax: 2.24 mm/s ( - ) cm) m/s) TR PGmax: 20 mmHg ( - ) IVSd (2D): 0.7 cm (0.6 cm-1.1 AV maxP mmHg ( - ) syst. PAP: 25 mmHg ( - ) cm) LVOT Vmax: 1.18 m/s (0.7 m/s-1.1 PV Vmax: 0.95 m/s (0.6 m/s-0.9 LVDd (2D): 5.4 cm (4.2 cm-5.9 m/s) m/s) cm) MV E Vmax: 0.41 m/s ( - ) PV PGmax: 4 mmHg ( - ) LVDs (2D): 3.9 cm (2.1 cm-4 MV A Vmax: 0.88 m/s ( - ) cm) MV E/A: 0.47 ( - ) LVPWd (2D): 1.1 cm (0.6 cm-1 cm) LVEF (BP): 51 % (>=55 %) Continued Measurements: Chambers Valvular Assessment AV/MV Valvular Assessment TV/PV Patient: CINDY HENRY Study Date: 07/22/2017 Page 1 of 2 11:34 AM Name Value Name Value Name Value LADs Lon.2 cm MV E' Septal: 0.07 m/s CVP (est.): 5 mmHg LA Area: 15.0 cm2 MV E/E' Septal: 6.10 LA Volume: 34 ml MV E/E' Lateral: 4.70 LA Volume Index: 17.4 ml/m2 Additional Vessels Name Value Ao Ascendin.3 cm Ao Arch: 3.1 cm Findings: Left Ventricle: Normal size left ventricle. No LV hypertrophy. Low normal left ventricular systolic function. EF is 51 %. There is a small, discrete area of the mid toni/inferoseptal wall which is thin and akinetic consistent with old SD. Right Ventricle: Normal size right ventricle. Normal RV function. Left Atrium: The left atrium is normal in size. Right Atrium: The right atrium is normal in size. Mitral Valve: The mitral valve is normal in appearance. There is no mitral valve regurgitation. Aortic Valve: The aortic valve is tri-leaflet. Mild aortic valve regurgitation is present. No aortic valve stenosis is present. Tricuspid Valve: The tricuspid valve appears normal. Trivial to mild tricuspid valve regurgitation. The pulmonary artery pressure is normal. Pulmonic Valve: Pulmonary valve not well visualized. Aorta: Normal size aortic root measuring 3.1 cm. Dilated ascending aorta measuring 4.3 cm. Normal size aortic arch measuring 3.1 cm. Pericardium: Trace anterior pericardial effusion versus fat pad. (No Signature Object) Patient: CINDY HENRY Study Date: 07/22/2017 Page 2 of 2 11:34 AM [id number]
--- NOTE | 2017-07-22 15:32 | GCON ---
[f rep st] CONSULTATION CARDIOLOGY CONSULTATION DATE OF CONSULTATION: 07/22/2017 HISTORY OF PRESENT ILLNESS: The patient is a 66-year-old male with a known history of CAD, non-Q-wav e LA, previous percutaneous coronary intervention with GLADIS implantation in the LAD, PTCA of the diago nal branch, hypertension, and hyperlipidemia. His PCI and non-Q wave LA were both on December 13, 2016. Patient reporting he has been doing well, reporting no significant symptoms suggestive of ischemia si nce his procedure. He has been exercising on a routine basis, denying any recent fevers, chills, or n ight sweats. Reporting he has been asymptomatic until this morning, when he woke up at 6:00 a.m. Repo rting a left anterior chest pressure, worsening with deep inspiration, and dissipating with expiratio n. Has reported some mild numbness and tingling down his left arm. Denies any associated shortness of breath, nausea, or diaphoresis. This has concerned him, especially with a previous cardiac history. He did take his blood pressure with the pain, noted an elevation of 149/99. With no improvement in sy mptoms, he decided to come to the emergency department for further evaluation. Upon arrival, an elect rocardiogram was done, showing sinus rhythm, left axis deviation, borderline T-wave abnormalities in inferior leads. No acute ST or T-wave abnormalities. Initial troponin level drawn showing less than 0 .012. A D-dimer was also negative at less than 0.20. The patient was given 1 sublingual nitroglycerin in the emergency department, reporting that it did not make a differentiation with his chest pressur e, but did lower his blood pressure, and caused him some lightheadedness. He has been admitted up to the PCU, and currently reports that he is pain. Denies any recent palpitations, orthopnea, PND, edema , lightheadedness, near-syncope, or syncopal events. Denies any symptoms suggestive of TIA or CVA. Re ports he has been compliant with all his medications, including his anti-platelet of aspirin and Effi ent. PAST MEDICAL HISTORY: Includes: 1. CAD, as mentioned above, status post LA, previous PCI with GLADIS implantation to the LAD, PTCA of d iagonal branch, and septal branch occlusion with jailed stent. 2. Hypertension. 3. History of pneumonia. 4. Reporting episodes of epistaxis requiring emergency department visit and cauterization while on d ual anti-platelet therapy. PAST SURGICAL HISTORY: PCI as mentioned above. FAMILY HISTORY: The patient reports a father with known history of coronary artery disease. 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 He reports no history of smoking. Occasional alcohol use. Denies any illicit drug use. He lives with his . ALLERGIES: No known drug allergies. MEDICATIONS: At home include 1. Aspirin 81 mg p.o. daily. 2. Effient 10 mg p.o. daily. 3. Losartan 25 mg p.o. daily. 4. Atorvastatin 40 mg p.o. daily. 5. Carvedilol 3.125 mg p.o. b.i.d. REVIEW OF SYSTEMS: A 10-point review of systems done on patient. All negative, except as mentioned a zoraida. PHYSICAL EXAMINATION: GENERAL APPEARANCE: A medium built, mildly overweight, male. He is a lert and oriented to person, place, time, situation. Appears to be in no acute distress. CURRENT SHANTANU L SIGNS: Blood pressure of 136/89, heart rate 89, sinus rhythm on the monitor, respirations 94% on ro om air, temperature of 36.4 degrees Celsius. HEENT: Head is normocephalic. Lips and tongue are pink a nd moist with no signs of cyanosis. Conjunctivae pink. NECK: Trachea is midline, +2 carotid pulses bi lateral, no auscultated bruits, no jugular vein distention. RESPIRATORY: Lungs clear to auscultation. No rhonchi, rales or wheezes. No accessory muscle use. No intercostal muscle retraction. CARDIAC: Re gular rate, regular rhythm. S1, S2. No S3, S4, gallops, rubs or murmur noted. ABDOMEN: Soft, nontende r, bowel sounds x4 quadrants, no organomegaly, no palpable masses. SKIN: [place], warm, dry. No cyanosis , no clubbing, no peripheral edema. VASCULAR: +2 carotids bilateral, +2 radials bilateral, +2 dorsal pedal and posterior tibial pulses bilateral. LABORATORY STUDIES: Laboratory studies drawn this morning on emergency department arrival showing WB C of 7.63, hemoglobin of 17.7, hematocrit 48.5, platelet count of 159. INR of 1.05. D-dimer less than 0.27. Sodium 143, potassium 3.8, chloride 107, CO2 of 23, BUN 18, creatinine 1.1, glucose 90. Calciu m 9.1. CK 92, CK-MB 1.17. Troponin less than 0.012. UA was done showing +1 blood and the rest negativ e. PROCEDURES: Previous cardiac catheterization, as mentioned above. IMAGIN. Chest x-ray on admission showing no acute cardiopulmonary process. 2. Electrocardiogram showing sinus rhythm, left axis deviation, borderline T-wave abnormalities in i nferior leads. ASSESSMENT AND PLAN: 1. Chest pressure: Patient with known history of coronary artery disease and myocardial infarction. Recent percutaneous coronary intervention of the left anterior descending with percutaneous translumi nal coronary angioplasty of the diagonal branch. The patient also noted to have moderate non-flow dis ease in both the circumflex and right coronary artery. First episode of chest pressure this morning. Negative troponin, no significant ST changes suggestive of acute ischemia. At this time, the patient currently reporting no chest pressure at the time of my examination. At this time, I have recommended the we have the patient undergo echocardiogram for evaluation of left ventricular function. If he horowitz s any new wall motion abnormalities, then consideration of having him undergo repeat cardiac catheter ization. If negative, then would recommend cycling troponins, and consider doing exercise tolerance t est and myocardial perfusion imaging studies tomorrow morning. Until then, we will continue him on ho me dose beta-shahida, aspirin, and Effient. 2. Hypertension: Patient with noted history of hypertension. Blood pressure mildly elevated today. P otentially could be some anxiety with this. We will continue him on home dose losartan. Adjust as nec essary. 3. Hyperlipidemia: Patient with noted history of hyperlipidemia. Currently, we will resume home dose of atorvastatin. Repeat fasting lipid panel in the a.m. for evaluation and therapy. Thank you for this consultation. We will be glad to follow along with you. /[id number]/MODL
[2017-07-22] MEDS: CARVEDILOL 3.125 MG TAB PO SCH (18:38)
[2017-07-23 05:08] LABS: % IMMATURE GRANULYOCYTES 0.3 % (0.0-1.1); ABSOLUTE IMMATURE GRANULOCYTES 0.03 10^3/uL (0.00-0.10); ADD DIFF? NO; ADD MORPH? NO; ADD SCAN? NO; ATYPICAL LYMPHOCYTE FLAG 0 (0-99); FRAGMENT RBC FLAG 0 (0-99); HEMATOCRIT 46.4 % (40.0-51.0); HEMOGLOBIN 16.6 g/dL (13.7-17.5); LEFT SHIFT FLG 0 (0-99); LIPEMIA HEMOLYSIS FLAG 90 (0-99); MEAN CELL HEMOGLOBIN 32.2 pg (27.9-34.1); MEAN CELL HEMOGLOBIN CONCENTR. 35.8 g/dL (32.4-36.7); MEAN CELL VOLUME 90.1 fL (81.5-99.8); MEAN PLATELET VOLUME 9.1 fL (8.7-11.7); PLATELET CLUMPS FLAG 0 (0-99); PLATELET COUNT 146 10^3/uL (150-400); RED BLOOD CELL COUNT 5.15 10^6/uL (4.40-6.38); RED CELL DISTRIBUTION WIDTH 12.3 % (11.5-15.2)
[2017-07-23 05:30] LABS: ALANINE AMINOTRANSFERASE 31 IU/L (21-72); ALBUMIN 3.2 g/dL (3.5-5.0); ALKALINE PHOSPHATASE 47 IU/L (38-126); ANION GAP 10 mEq/L (8-16); ASPARTATE AMINOTRANSFERASE 21 IU/L (17-59); BILIRUBIN,TOTAL 2.7 mg/dL (0.1-1.4); CALCIUM 8.8 mg/dL (8.5-10.4); CARBON DIOXIDE 23 mEq/l (22-31); CHLORIDE 107 mEq/L (97-110); CREATININE 0.9 mg/dL (0.7-1.3); GLOMERULAR FILTRATION RATE > 60; GLUCOSE 86 mg/dL (70-100); POTASSIUM 3.9 mEq/L (3.5-5.2); SODIUM 140 mEq/L (134-144); TOTAL PROTEIN 5.6 g/dL (6.3-8.2)
[2017-07-23 05:36] LABS: TROPONIN I < 0.012 ng/mL (0.000-0.034)
[2017-07-23 06:12] LABS: BILIRUBIN-CONJUGATED 0.4 mg/dL (0.0-0.5); BILIRUBIN-UNCONJUGATED 2.3 mg/dL (0.0-1.1)
[2017-07-23] MEDS: ASPIRIN 81 MG CHEWABLE TAB PO SCH (07:47)
[2017-07-23] MEDS: ENOXAPARIN 40 MG/0.4 ML SYR SC SCH ×2 (07:48→08:21)
[2017-07-23] MEDS ORDERED: LOSARTAN POTASSIUM 25 MG TAB PO SCH (09:00)
[2017-07-23] MEDS ORDERED: PRASUGREL HCL 10 MG TAB PO SCH (09:00)
[2017-07-23] MEDS ORDERED: ATORVASTATIN CALCIUM 40 MG TAB PO SCH (09:00)
--- NOTE | 2017-07-23 09:05 | CPEKG ---
Heart Rate: 85 RR Interval: 706 P-R Interval: 180 QRSD Interval: 92 QT Interval: 348 QTC Interval: 414 P [place]: 48 QRS [place]: -31 T Wave [place]: 7 EKG Severity - OTHERWISE NORMAL ECG - EKG Impression: SINUS RHYTHM EKG Impression: LEFT AXIS DEVIATION Electronically Signed By: Manoj Harper 23-Jul-2017 13:44:46
--- NOTE | 2017-07-23 11:24 | ASMTCMCOM ---
CM Note CM Note Notes: Reviewed chart and d/w RN. Anticipate dc home independantly when med stable. Date Signed: 07/23/2017 11:23 AM Electronically Signed By:[place] RN
[2017-07-23] MEDS: CARVEDILOL 3.125 MG TAB PO SCH (11:46)
[2017-07-23 11:52] VITALS: BP 107/83; PULSE 98; RESP 24; TEMP 98.5; O2SAT 92
--- NOTE | 2017-07-23 12:36 | CPR ---
[f rep st] NONINVASIVE CARDIAC PROCEDURE REPORT PROCEDURE: Exercise treadmill with exercise treadmill MPI study. INDICATION FOR PROCEDURE: Known history of coronary artery disease, admitted to hospital with chest pressure. PRE: After obtaining informed consent, patient was placed on electrocardiogram, initial EKG showing sinus rhythm, normal axis, nonspecific T-waves in inferior lateral leads. The patient denies chest p ain, shortness of breath. Initial saturation 98%. Initial blood pressure 118/70. STRESS: The patient was placed on exercise treadmill, following standard August protocol, with the fo llowing findings: 1. Patient exercised for 9 minutes. 2. 10.3 METS. 3. Heart rate obtained was 140 beats per minute, which is 98% of MPHR. 4. Patient had no ST shifts at peak exercise suggesting of ischemia. 5. Patient had no chest pain or symptoms of ischemia throughout testing. 6. Patient was noted to have rare premature ventricular contraction during stress, with 1 episode wi th 1 PVC couplet. 7. SpO2 remained greater than 90%. 8. BP variations: Resting 118/70. Peak 168/80. 9. Test was stopped due to maximum effort. 10. Antonio treadmill score of 9, placing patient at low cardiovascular risk. RECOVERY: Patient recovered for 5 minutes, with heart rate and blood pressure returning back to with in normal limits. No arrhythmias noted. He remained asymptomatic. IMPRESSION: A 66-year-old male, known history of CAD with previous PCI, admitted to hospital with ch est pressure, undergoing exercise MPI study for evaluation of ischemia, negative troponins. Exercise treadmill showing no ischemic changes at peak exercise, Antonio treadmill score of 9 placing him at low cardiovascular risk. Vital signs are stable. He currently has no symptoms, he is being taken down to Nuclear Medicine for post MPI imaging. /[id number]/MODL
[2017-07-23] MEDS ORDERED: FLU VACC QS 2017-18 (3YR+)/PF 0.5 ML SYR (FLUARIX QUAD) IM ONE (12:38)
--- NOTE | 2017-07-23 13:56 | PDCARPN ---
Cardiology Progress Note Chief Complaint: chest pressure with inspiration yesterday morning Assessment/Plan: Assessment: 66-year-old male of Dr. 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 Reports yesterday morning waking up with chest pressure, worsening with inspiration, dissipating rest. Negative troponins x4, D-dimer within normal limits. Chest x-ray showing no acute cardiopulmonary process. Underwent echocardiogram yesterday showing normal LV size with EF of 51%, with small discrete area of mid anterior inferior septal wall thin in akinesis. Consistent with old IL. No significant valvular heart disease. Normal pulmonary pressures. Patient underwent exercise treadmill testing today, showing no ST shifting suggesting of ischemia at peak exercise. Antonio treadmill score of 9, placing him at low cardiovascular risk. Patient reports brief episode of chest pressure during the night, again associated deep inspiration. Patient also noted to have mildly elevated higher heart rate (90s to 100s). Overnight continuous cardiac monitoring showing no malignant arrhythmias or pauses. Plan: 1. Chest pain: Known history of CAD, ETT and MPI study showing no signs of ischemia. Negative troponin x4. Chest pain in consistent with cardiac ischemia. Negative D-dimer, question of possible noncardiac or pulmonary embolism in origin. (GERD, muscular skeletal, ? pleuritis or costochndritis). Patient should be further evaluated by PCP if no improvement. 2. CAD: Known history of CAD with recent PCI, negative troponins x4, ETT and MPI study showing no ischemia. Patient should continue on current anti- platelet therapy of aspirin and Effient, remains on Coreg, and losartan. 3. Hyperlipidemia: Patient continue on home dose of statin therapy. 4. Hypertension: Blood pressure within normal limits, continue on beta-shahida and ARB. Patient to be discharged this afternoon, I have called Dr. Julien office, patient 's primary flat finisher, they will call patient for a 2 to three-week follow-up in office in the next day or so. 07/23/17 13:54 Subjective: Patient currently denies of any chest pain, pressure, shortness of breath, orthopnea, PND, edema, lightheadedness, palpitations, near-syncope, or syncopal events Reviewed/Discussed With: hospitalist (Dr Bernal), other (Dr Rodriguez) Objective: Vital Signs (8 Hrs) Temp Pulse Resp BP Pulse Ox 07/23/17 11:49 36.9 C 98 24 H 107/83 H 92 07/23/17 07:39 37.7 C 91 17 114/87 H 93 Intake/Output (24 Hrs) 07/22/17 07/23/17 07/24/17 05:59 05:59 05:59 Intake Total 1450 Output Total 250 Balance 1200 Intake: Oral (ml) 950 IV Infused (ml) 500 Output: Urine (ml) 250 Other: Weight 80.739 kg Intake Quantity Yes Sufficient Number of Voids Toilet 3 Result Diagrams: 07/23/17 04:12 07/23/17 04:12 Cardiac Labs: Cardiac Lab Results (72 Hrs) 07/23/17 07/22/17 07/22/17 04:12 19:40 13:30 Troponin I < 0.012 < 0.012 < 0.012 - Physical Exam Constitutional: WDWN, healthy appearing, no apparent distress Ears, Nose, Mouth, Throat: moist mucous membranes Cardiovascular: regular rate and rhythm, no murmurs, pulses symmetric bilat, No jugular vein distention, No carotid bruit Peripheral Pulses: 2+: carotid (R), carotid (L), dorsalis-pedis (R), dorsalis- pedis (L) Respiratory: clear to auscultate bilat, no crackles, no wheezes Gastrointestinal: normoactive bowel sounds Skin: no rashes, no edema Neurologic: AAOx3 Psychiatric: cooperative, interactive, following commands ICD10 Worksheet Patient Problems: Problems Problem Status Onset Pneumonia Acute Chest pain Acute
--- NOTE | 2017-07-23 14:37 | GDS ---
[f rep st] DISCHARGE SUMMARY DISCHARGE DIAGNOSES: 1. Chest pain. 2. History of coronary artery disease. 3. History of pneumonia. 4. History of epistaxis. 5. Hypertension. HOSPITAL COURSE: This is a 66-year-old man with a history of coronary artery disease. 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 He had a subsequent UT. He presented with pleuritic chest pain. Troponins were negative. EKG was unchanged, echocardiogram was unchanged, telemetry was unremarkable. D-dimer was negative. He underwent a treadmill with nuclear imaging. This showed evidence of his old UT, however, nothing new. Notably, his EF was 50% on the echo. Echo also did show septal hypokinesis which was unchanged from his previous. He has been seen by Cardiology. Because of this, I think it is unlikely that he is having ACS. Clot is very unlikel y, given his negative D-dimer. I think the most likely explanation is pleurisy from potentially viru s, given his borderline fever while he was here, and his general malaise. He also felt some tremors prior to coming in. He feels much better today. He is discharged with followup with his PCP, Dr. Zeny Snell, as well as Dr. 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 /[id number]/[facility]
--- NOTE | 2017-07-23 15:03 | ASDISCHSUM ---
Discharge Information Plan Status:Home with No Needs Medically Cleared to Leave: Discharge Date:07/23/2017 02:52 PM CM D/C Disposition:Home, Routine, Self-Care ADT D/C Disposition:Home, Routine, Self-Care Projected Discharge Date:07/23/2017 02:52 PM Transportation at D/C: Discharge Delay Reason: Follow-Up Date:07/23/2017 02:52 PM Discharge Slot: Final Diagnosis: Placement Information Patient Contact Information Contact Name:TAINA Relationship: Address:[address] [place] [address] Work Phone: City:[place] Alternate Phone: [facility]/Zip Code:[place] [address] Email: Financial Information Financial Class: Primary Plan Desc:MEDICARE OUTPATIENT Primary Plan Number:[id number] Secondary Plan Desc:[facility] POS Secondary Plan Number:[id number] Assessment Information [facility] CM Progress Note CM Note CM Note Notes: Reviewed chart and d/w RN. Anticipate dc home independantly when med stable. Date Signed: 07/23/2017 11:23 AM Electronically Signed By:[place] RN Intervention Information Intervention Type:*SOLOMON-Signed Date of Service:07/22/2017 10:29 AM Patient Type:Observation Staff Member:Christy Goss Hours: Discipline: Severity: Comment:
== END 2017-07-23 14:52 | disposition home or self-care (01) ==
LOC: INTOOBSV 08:10 → F2W 09:30
PROVIDERS: ADMIT Student in an Organized Health Care Education/Training Program; ATTEND Student in an Organized Health Care Education/Training Program
DX: R07.9 Chest pain, unspecified (principal); I25.10 Atherosclerotic heart disease of native coronary artery without angina pectoris; I10 Essential (primary) hypertension; R25.1 Tremor, unspecified; E78.5 Hyperlipidemia, unspecified; I25.2 Old myocardial infarction; Z79.82 Long term (current) use of aspirin; Z87.891 Personal history of nicotine dependence; Z82.49 Family history of ischemic heart disease and other diseases of the circulatory system; Z95.5 Presence of coronary angioplasty implant and graft; Z23 Encounter for immunization
CPT/HCPCS: 71010; 78452; 90686; 93005; 93017; 93306; A9500; G0008; G0378; J3010; 96374; J1650

== ENCOUNTER → 2017-08-07 | Outpatient (CLI) | payer OTHER | LOC: FIMAGING 09:31 | PROVIDERS: ATTEND Internal Medicine | DX: Z77.090 Contact with and (suspected) exposure to asbestos (principal); R05 Cough; I71.2 Thoracic aortic aneurysm, without rupture ==

== ENCOUNTER → 2018-07-14 | Outpatient (CLI) | payer OTHER | LOC: BHFA 09:00 | PROVIDERS: ATTEND Internal Medicine Cardiovascular Disease | DX: I25.10 Atherosclerotic heart disease of native coronary artery without angina pectoris (principal) | CPT/HCPCS: 78452; 93017; A9500 ==

== ENCOUNTER 2018-07-26 10:25 | Observation (INO) | payer OTHER ==
[2018-07-26] MEDS ORDERED: DIAZEPAM 5 MG TAB PO ONE (10:29)
[2018-07-26] MEDS ORDERED: diphenhydrAMINE 25 MG CAP PO ONE ×2 (10:29→10:36)
[2018-07-26] MEDS ORDERED: ASPIRIN EC 325 MG TAB PO ONE ×2 (10:29→10:36)
[2018-07-26] MEDS ORDERED: FAMOTIDINE 20 MG TAB PO ONE (10:29)
[2018-07-26] MEDS ORDERED: NS 1,000 ML IV ONE (10:29)
[2018-07-26] MEDS ORDERED: FAMOTIDINE 20 MG TAB ONE (10:36)
[2018-07-26] MEDS ORDERED: DIAZEPAM 5 MG TAB ONE (10:36)
--- NOTE | 2018-07-26 11:04 | PDHPUP ---
History & Physical Update H&P update statement: This history and physical update is based on an assessment of the patient which was completed after admission or registration (within 24 hours), but prior to the surgery/procedure. H&P update: H&P reviewed & patient examined, no change in patient's condition since H&P completed
--- NOTE | 2018-07-26 11:05 | PDPROPOC ---
Sedation Plan of Care Sedation Plan of Care: vital signs stable, mental status noted, patient educated of risks, benefits, alternatives, patient can tolerate sedation ASA Classification: ASA 2 Planned drugs: fentanyl, midazolam Mallampati Score: Class 1 Mallampati Reference Image: Patient passed 3-3-2 rule?: Yes
[2018-07-26 11:15] LABS: PLATELET COUNT 169 10^3/uL (150-400)
[2018-07-26 11:26] LABS: INR 1.04 (0.83-1.16); PROTIME(PATIENT) 13.8 SEC (12.0-15.0)
[2018-07-26] MEDS ORDERED: LIDOCAINE 1% 300 MG/30 ML SDV ONE (11:41)
[2018-07-26] MEDS ORDERED: MIDAZOLAM 2 MG/2 ML VIAL ONE (11:41)
[2018-07-26] MEDS ORDERED: IOPAMIDOL (ISOVUE-370) 150 ML BTL IV ONE (11:41)
[2018-07-26] MEDS ORDERED: fentaNYL 100 MCG/2 ML INJ ONE (11:41)
[2018-07-26] MEDS ORDERED: HEPARIN 10,000 UNIT/10 ML MDV (1,000 UNIT/ML) ONE (11:47)
[2018-07-26] MEDS ORDERED: VERAPAMIL 5 MG/2 ML VIAL ONE (11:47)
[2018-07-26] MEDS ORDERED: ATROPINE SULFATE 1 MG/10 ML SYR IVP PRN (13:01)
[2018-07-26] MEDS ORDERED: NITROGLYCERIN 0.4 MG BTL SL PRN (13:01)
--- NOTE | 2018-07-26 13:04 | PDDXCAT ---
Diagnostic Cath Note - . Date: 07/26/18 Churner: Hunter Indication: Class I/II angina, intolerance to med therapy or failure to respond High-risk criteria on non-invasive testing: stress-induced mod-size perf defect w LV dilatation or inc lung uptake - Procedure Access: right wrist Procedure: left heart catheterization, coronary angiography, left ventriculogram - Materials Left Heart Cath size: 5F Left Heart Cath materials: pigtail, other (TIG) - Findings-Left Heart Catheterization LM: Unobstructed LAD: Proximal stent widely patent. Diffuse luminal irregularities. 99% apical stenosis. LCX: Large vessel, diffuse luminal irregularities up to for 60%. RCA: Dominant vessel: At the crux of the heart there is a 60% stenosis prior to the bifurcation. Luminal irregularities noted. EDP: 11 mm of mercury LVEF: 60% Wall motion: Normal Complications: None Estimated blood loss: <50ml Closure method: TR Band Assessment: Moderate to severe coronary atherosclerotic cardiovascular disease with critical stenosis in the apical portion of the LAD. Preserved LV systolic function with normal filling pressures. Widely patent site of prior stenting. Plan: Aggressive medical therapy. Clinical follow-up. Stenosis could be treated with PCI though apical position offers no survival benefit. No clear indication for coronary bypass grafting at this time. Patient Problems: Problems Problem Status Onset Pneumonia Acute Chest pain Acute
--- NOTE | 2018-07-26 17:46 | PDCONSULT ---
Lot Technician Note: Patient's blood pressure has been low with mild symptoms since the cath. Cath data was reviewed. Medications have been reconciled and a bed request has been placed. Will monitor the patient overnight of telemetry flood, and plan on discharge in the morning.
[2018-07-26] MEDS: CARVEDILOL 3.125 MG TAB PO SCH (18:37)
[2018-07-26] MEDS ORDERED: ATORVASTATIN CALCIUM 40 MG TAB PO SCH (21:00)
[2018-07-27 07:17] VITALS: BP 131/90
[2018-07-27] MEDS: CARVEDILOL 3.125 MG TAB PO SCH (07:30)
--- NOTE | 2018-07-27 08:00 | ASMTCMCOM ---
CM Note CM Note Notes: Reviewed chart for d/c planning purposes. Do not anticipate any d/c needs at this time. Case Management available should something change. Plan: Likely Independent Date Signed: 07/27/2018 07:59 AM Electronically Signed By:Kami Bauer RN
[2018-07-27] MEDS ORDERED: PNEUMOC 13-VAL CONJ-DIP CRM/PF 0.5 ML SYR IM ONE (08:09)
[2018-07-27] MEDS ORDERED: ASPIRIN 81 MG CHEWABLE TAB PO SCH (09:00)
[2018-07-27] MEDS ORDERED: LOSARTAN POTASSIUM 50 MG TAB PO SCH (09:00)
--- NOTE | 2018-07-27 09:54 | ASDISCHSUM ---
Discharge Information Plan Status:Home with No Needs Medically Cleared to Leave: Discharge Date: CM D/C Disposition:Home, Routine, Self-Care ADT D/C Disposition: Projected Discharge Date: Transportation at D/C:Family Discharge Delay Reason: Follow-Up Date: Discharge Slot: Final Diagnosis: Placement Information Patient Contact Information Contact Name:TAINA Relationship: Address:[address] [place] [address] Work Phone: City:[place] Phone: State/Zip Code:[place] [address] Email: Financial Information Financial Class:Medicare Primary Plan Desc:MEDICARE OUTPATIENT Primary Plan Number:[id number] Secondary Plan Desc:[facility] POS Secondary Plan Number:[id number] Assessment Information [facility] CM Progress Note CM Note CM Note Notes: Reviewed chart for d/c planning purposes. Do not anticipate any d/c needs at this time. Case Management available should something change. Plan: Likely Independent Date Signed: 07/27/2018 07:59 AM Electronically Signed By:Kami Bauer RN Intervention Information
--- NOTE | 2018-07-27 11:24 | GDS ---
ADMISSION DIAGNOSES: Hypotension post cardiac catheterization. DISCHARGE DIAGNOSES: 1. Hypotension post cardiac catheterization secondary to volume depletion. 2. Coronary artery disease. History of percutaneous coronary intervention. 3. Hyperlipidemia. FOLLOWUP: 1. Johnson Dhillon MD., August 05. 2. Follow up Palomo Harrison MD. as needed August 03. MEDICATIONS: See attached. PROCEDURES DONE DURING THIS HOSPITALIZATION: Left heart catheterization, coronary ventricular angiography done from the radial artery approach. HOSPITAL COURSE: The patient is 67 years old. He was brought to the hospital electively for stable angina and abnormal nuclear stress test. He was found to have a widely patent LAD stent critical diagonal disease with moderate LAD disease post stenting. Left ventricular function was preserved.. It was elected to treat him medically in the setting of normal LV systolic function and stable angina. Post procedure, the patient's blood pressure was 90. He had some dizziness. This responded incompletely to IV fluids, and he was admitted for observation overnight. His hemodynamics stabilized without complications. He was up ambulating this morning without symptoms. PHYSICAL EXAMINATION: VITAL SIGNS: On the day of discharge, revealed a blood pressure of 131/90. His current heart rate is 60. His respiratory rate was 16. His oxygen saturation was 96% on room air. He was afebrile at 36.7. NECK : He had no JVP. CHEST: Clear. CARDIAC: Revealed a regular rate and rhythm. His puncture site was healing well without significant ecchymosis, erythema, or edema. He had no peripheral edema. PROBLEM LIST: Coronary artery disease. History of percutaneous coronary intervention. Continue aggressive secondary prevention. Discussed potential use of Ranexa as an anti anginal. Continued high level of secondary prevention. Exercise was discussed. Questions were answered. He was discharged home in stable condition. /[id number]/[facility]
--- NOTE | 2018-07-29 09:06 | CPEKG ---
Test Reason : OPEN Blood Pressure : / mmHG Vent. Rate : 063 BPM Atrial Rate : 062 BPM P-R Int : 206 ms QRS Dur : 096 ms QT Int : 392 ms P-R-T Axes : 011 -32 005 degrees QTc Int : 402 ms Sinus rhythm Left axis deviation Borderline T abnormalities, inferior leads Confirmed by Manoj Harper ([id number] on 07/29/2018 9:06:01 AM Referred By: Confirmed By:Manoj Harper
== END 2018-07-27 11:30 | disposition home or self-care (01) ==
LOC: FCATH 10:25 → F2W 17:52
PROVIDERS: ADMIT Internal Medicine Interventional Cardiology; ATTEND Internal Medicine Interventional Cardiology
PROC: B2151ZZ Fluoroscopy of Left Heart using Low Osmolar Contrast (ICD-10-PCS; principal; 2018-07-26)
PROC: B2111ZZ Fluoroscopy of Multiple Coronary Arteries using Low Osmolar Contrast (ICD-10-PCS; principal; 2018-07-26)
PROC: 4A023N7 Measurement of Cardiac Sampling and Pressure, Left Heart, Percutaneous Approach (ICD-10-PCS; principal; 2018-07-26)
DX: I25.118 Atherosclerotic heart disease of native coronary artery with other forms of angina pectoris (principal); Z95.5 Presence of coronary angioplasty implant and graft; R94.39 Abnormal result of other cardiovascular function study; E86.9 Volume depletion, unspecified; I95.81 Postprocedural hypotension; E78.5 Hyperlipidemia, unspecified; Z23 Encounter for immunization
CPT/HCPCS: 90670; 90686; 93005; 93458; C1769; G0008; G0009; J1644; J2250; J3010; Q9967